=== PATIENT | female | born 1955 | race Caucasian/White ===

== ENCOUNTER → 2016-09-22 | Outpatient (CLI) | payer OTHER ==
[~2016-09-22] MED LIST: AMLO5TAB2 PO; ATOR-24 PO; BUPR75TA20 PO; ESCI1TAB10 PO; LISI-729 PO; MULT-260 PO; PRAV20TA2 PO; TRAV0.00 OPB
[2016-09-22 12:49] LABS: ALT/SGPT 40 U/L (12-78); BLOOD UREA NITROGEN 18 mg/dl (7-18); BUN/CREATININE RATIO 24.1 (10-20); CALCIUM 9.7 mg/dl (8.5-10.1); CARBON DIOXIDE 28 mmol/L (21-32); CHLORIDE 107 mmol/L (98-107); CHOLESTEROL 229 mg/dl (0-200); CREATININE 0.75 mg/dl (0.60-1.20); GLUCOSE 112 mg/dl (70-99); POTASSIUM 4.6 mmol/L (3.5-5.1); SODIUM 142 mmol/L (136-145)
[2016-09-22 12:56] LABS: BASO % 0.4 %; BASO ABS # 0.02 K/uL (0-0.2); COMPLETE YES; EOS % 0.5 %; HEMATOCRIT 42.5 % (37-47); IG% 0.2 %; LYMPH ABS # 1.39 K/uL (1.2-3.4); MEAN CELL VOLUME 97.7 fL (80-100); MEAN CORPUSCULAR HEMOGLOBIN 33.3 pg (25-34); MEAN CORPUSCULAR HGB CONC 34.1 g/dl (32-36); MEAN PLATELET VOLUME 10.2 fL (7.4-10.4); MONO % 6.8 %; NEUT % 67.1 %; PLATELET COUNT 244 K/uL (130-400); RED BLOOD COUNT 4.35 M/uL (4.2-5.4); WHITE BLOOD COUNT 5.55 K/uL (4.8-10.8)
[2016-09-22 12:59] LABS: ALB/GLOB RATIO 1.5 (0.9-2); ALKALINE PHOSPHATASE 88 U/L (45-117); AST/SGOT 25 U/L (15-37); CHOLESTEROL/HDL RATIO 2.4; HDL CHOLESTEROL 96 mg/dl; LDL CHOLESTEROL CALCULATED 124 mg/dl; TRIGLYCERIDES 47 mg/dl (0-150); URINE APPEARANCE CLEAR (CLEAR); URINE BILIRUBIN NEG (NEG); URINE COLOR YELLOW; URINE NITRITE NEG (NEG); URINE SPECIFIC GRAVITY 1.017 (1.000-1.030); UROBILINOGEN NEG (NEG); VERY LOW DENSITY LIPOPROT CALC 9 mg/dl; ZZUR CULT IF INDIC CLEAN CATCH NO
[2016-09-22 13:00] LABS: ESTIMATED AVERAGE GLUCOSE 114 mg/dl; HA1C FLAG Normal (Normal)
[2016-09-22 13:09] LABS: MANUAL MICROSCOPIC REQUIRED? NO; REVIEW REQ? YES
== END | disposition home or self-care (01) ==
LOC: C.LABBFT 08:28
PROVIDERS: ATTEND Internal Medicine
DX: E78.5 Hyperlipidemia, unspecified (principal); R73.01 Impaired fasting glucose

== ENCOUNTER → 2017-03-23 | Outpatient (CLI) | payer OTHER ==
[~2017-03-23] MED LIST changes: -MULT-260 PO; -PRAV20TA2 PO
[2017-03-23 13:30] LABS: CHOLESTEROL/HDL RATIO 2.1
== END | disposition home or self-care (01) ==
LOC: C.LABBFT 08:59
PROVIDERS: ATTEND Internal Medicine
DX: E78.5 Hyperlipidemia, unspecified (principal)

== ENCOUNTER → 2017-04-16 | Day surgery (SDC) | payer OTHER ==
[2017-03-16 10:22] VITALS: Ht 152.4 cm; Wt 43.2 kg
[~2017-04-16] VITALS: Ht 152.4 cm; Wt 43.2 kg
[~2017-04-16] MED LIST changes: +500ML BSS 0.3ML EPI 1:1000PF IRRIG ONE; +ACETAMINOPHEN 325 MG TAB PO PRN; +AMVISC PLUS 0.8ML SYRINGE INT OCU ONE; +ATROPINE SULFATE 0.1 MG/ML 5ML SYR IV PRN; +BRIMONIDINE TART 0.2% OP SOLN PER DROP CHARGE ONE; +BSS FLUSH ONE; +ENDOCOAT 0.85ML SYRINGE INT OCU ONE; +EpHEDrine SULFATE INJ 50 MG/ML AMP IV PRN; +EpINEphrine INJ 1MG/ML AMP 1 MG/ML AMP ONE; +FENTANYL CITRATE INJ 50 MCG/1 ML 2 ML VIAL ONE; +LACTATED RINGER'S 1000ML 500 ML IV SCH; +LIDOCAINE 4% OP SOLN DROP CHARGE ONE; +LIDOCAINE 4% OP SOLN DROP CHARGE OPL SCH; +LIDOCAINE HCL 1% MPF 2 ML VIAL ONE; +MIDAZOLAM HCL 1 MG/ML 2ML VIAL ONE; +MOXIFLOXACIN OPH SOLN PER DROP CHARGE ONE; +POVIDONE-IODINE OP SOLN 30 ML BTL ONE; +PROPARACAINE 0.5% OP SOLN PER DROP CHARGE OPL SCH; +TOBRAMYCIN/DEXAMETHASONE OPH OINT PER APPLN CHARGE ONE
[2017-04-16] MEDS: PHENYLEPHRINE HCL 2.5% OP SOLN PER DROP CHARGE OPL SCH ×2 (10:01→10:06)
[2017-04-16] MEDS: TROPICAMIDE 1% OP SOLN PER DROP CHARGE OPL SCH ×2 (10:02→10:07)
[2017-04-16] MEDS: CYCLOPENTOLATE HCL 1% OP SOLN PER DROP CHARGE OPL SCH ×2 (10:03→10:08)
[2017-04-16] MEDS: KETOROLAC 0.5% OP SOLN PER DROP CHARGE OPL SCH ×2 (10:04→10:09)
[2017-04-16] MEDS: MOXIFLOXACIN OPH SOLN PER DROP CHARGE OPL SCH ×2 (10:05→10:15)
--- NOTE | 2017-04-16 10:40 | History & Physical Bridge - [place] ---
H&P Re-Evaluation Bridge Note: I have examined the patient, reviewed the History & Physical and in the interval since the performance of the History & Physical I have noted the following changes of clinical significance: No changes noted
--- NOTE | 2017-04-16 11:36 | Discharge Instructions-SurgCtr ---
Discharge Instructions Date of Service Apr 16, 2017. Visit Reason for Visit: Cataract Left Eye Discharge Discharge Diagnosis / Problem: cataract left eye Discharge Goals Goal(s): Improve function Activity Recommendations Activity Limitations: per Instructions/Follow-up section Lifting Limitations: no more than 5 pounds Anesthesia . Post Anesthesia Instructions: If you have had General Anesthesia or IV Sedation: * Do not drive today. * Resume driving when surgeon permits. * Do not make important decisions or sign legal documents today. * Call surgeon for: 1. Temperature elevations greater than 101 degrees F. 2. Uncontrollable pain. 3. Excessive bleeding. 4. Persistent nausea and vomiting. 5. Medication intolerance (nausea, vomiting or rash). * For nausea and vomiting use only clear liquids such as: tea, soda, bouillon until nausea subsides, then gradually increase diet as tolerated. * If you have any concerns or questions, call your surgeon's office. If physician is unavailable and it is an emergency, call 911 or go to the nearest emergency room. . Instructions / Follow-Up Instructions / Follow-Up ACTIVITY RECOMMENDATIONS: * Light activities * You may walk outside, read, watch television. * Mild irritation and blurred vision are common for the first few days, redness around the white part of the eye is common. MEDICATIONS: Resume previous medications unless instructed otherwise by your surgeon. Eye drops (today and tomorrow): Gatifloxacin - one drop in operative eye every 2 hours while awake Prednisolone 1% - one drop in operative eye every 2 hours while awake Bromfenac - one drop in operative eye once daily Latanoprost - one drop operative eye 1 times daily SPECIAL CARE INSTRUCTIONS: * If any problems or concerns, please call Dr. Platt's office at . * Keep plastic shield taped over eye to sleep at night. * Keep plastic shield taped over eye except to administer eye drops. * Keep plastic shield on until office visit the following day. FOLLOW UP VISIT: Follow-up with Dr. Platt in the [place] office as scheduled. If not already scheduled, please call the office at . Diet Recommendations Home Diet: resume previous diet Procedures Procedures Performed: Left Eye Cataract Phacoemulsification With Intraocular Lens Implant Pending Studies Studies pending at discharge: no Medical Emergencies . Who to Call and When: Medical Emergencies: If at any time you feel your situation is an emergency, please call 911 immediately. . Non-Emergent Contact Non-Emergency issues call your: [employer] Manager . . "Provider Documentation" section prepared by Yanick Platt. .
[2017-04-16 11:37] VITALS: TEMP 37
--- NOTE | 2017-04-16 11:39 | [facility] Operative Report ---
Operative Report Operative Date Apr 16, 2017. Pre-Operative Diagnosis Left Eye Cataract Post-Operative Diagnosis Same Procedure(s) Performed Left Eye Cataract Phacoemulsification With Intraocular Lens Implant Surgeon Dr. Platt Franchise Consultant Surgeon(s) None Estimated Blood Loss none Findings cataract left eye Fluids (cc crystalloids) see anesthesia record Specimens None Drains none Anesthesia local with sedation Complication(s) None Disposition Recovery Room / PACU Implants mx60 16.0 Indications decreased vision left eye Description of Procedure After informed consent was obtained in the holding area the patient was wheeled back to the operating room where cardiac monitoring leads and oxygen by nasal cannula was administered by Anesthesia. Gentle IV sedation was given, and the patient's left eye was prepped and draped in usual sterile fashion. A wire lid speculum was placed into the left eye and the operating microscope was swung into position. Using 0.12 forceps and a Supersharp blade a paracentesis port was made 2 o'clock hours away from the 3 o'clock position of the patient's left eye. 1% non-preserved Lidocaine was then injected into the anterior chamber for anesthesia. A 2.0 mm keratotome blade was then used to make a shelved clear corneal incision at the 3 o'clock position of the left eye. Amvisc was injected into the anterior chamber and a cystotome and Utrata forceps were used to perform a curvilinear capsulorrhexis. BSS on a hydrodissection cannula was used to hydrodissect the lens nucleus away from the capsular bag. The phacoemulsification handpiece was then used in a stop and chop fashion to remove the lens nucleus. The irrigation and aspiration handpiece was then used to remove the residual cortical material. Amvisc was injected into the capsular bag and anterior chamber and a [employer]ch [employer] Lomb MX60 16.0 Diopter intraocular lens was injected into the capsular bag. Irrigation and aspiration handpiece was used to remove the residual viscoelastic material. The wounds were hydrated and noted to be watertight. The wire lid speculum was removed from the eye. Vigamox, Brimonidine, and TobraDex ointment were placed on the eye and it was shielded. It should be noted that EndoCoat was used extensively during the case to protect the cornea endothelium. DISPOSITION: The patient tolerated the procedure well and was wheeled to the post anesthesia care unit in stable condition. I attest to the content of the Intraoperative Record and any orders documented therein. Any exceptions are noted below. I attest to the content of the Intraoperative Record and any orders documented therein. Any exceptions are noted below.
[2017-04-16 11:57] VITALS: BP 93/58; PULSE 68; O2SAT 96
--- NOTE | 2017-04-16 12:02 | Anesthesia Progress Nt - [facility] ---
Anesthesia Post Op Note Date & Time Apr 16, 2017 at 12:02 Vital Signs Pain Intensity: 0 Vital Signs Past 12 Hours Date Time Temp Pulse Resp B/P (MAP) Pulse Ox O2 Delivery O2 Flow Rate FiO2 04/16/17 11:57 68 16 93/58 (70) 96 Room Air 04/16/17 11:37 37 68 16 105/67 (80) 97 Room Air 04/16/17 09:54 36.8 83 18 123/78 (93) 98 Room Air Notes Mental Status: alert / awake / arousable, participated in evaluation Pt Amnestic to Procedure: Yes Nausea / Vomiting: adequately controlled Pain: adequately controlled Airway Patency, RR, SpO2: stable & adequate BP & HR: stable & adequate Hydration State: stable & adequate Anesthetic Complications: no major complications apparent
== END | disposition home or self-care (01) ==
LOC: X.SURG 09:43
PROVIDERS: ATTEND Ophthalmology
DX: H26.9 Unspecified cataract (principal); I10 Essential (primary) hypertension; F41.9 Anxiety disorder, unspecified; F32.9 Major depressive disorder, single episode, unspecified; Z90.89 Acquired absence of other organs; F17.200 Nicotine dependence, unspecified, uncomplicated; Z98.41 Cataract extraction status, right eye

== ENCOUNTER → 2017-10-03 | Outpatient (CLI) | payer OTHER ==
[~2017-10-03] MED LIST changes: -500ML BSS 0.3ML EPI 1:1000PF IRRIG ONE; -ACETAMINOPHEN 325 MG TAB PO PRN; -AMVISC PLUS 0.8ML SYRINGE INT OCU ONE; -ATROPINE SULFATE 0.1 MG/ML 5ML SYR IV PRN; -BRIMONIDINE TART 0.2% OP SOLN PER DROP CHARGE ONE; -BSS FLUSH ONE; -ENDOCOAT 0.85ML SYRINGE INT OCU ONE; -EpHEDrine SULFATE INJ 50 MG/ML AMP IV PRN; -EpINEphrine INJ 1MG/ML AMP 1 MG/ML AMP ONE; -FENTANYL CITRATE INJ 50 MCG/1 ML 2 ML VIAL ONE; -LACTATED RINGER'S 1000ML 500 ML IV SCH; -LIDOCAINE 4% OP SOLN DROP CHARGE ONE; -LIDOCAINE 4% OP SOLN DROP CHARGE OPL SCH; -LIDOCAINE HCL 1% MPF 2 ML VIAL ONE; -MIDAZOLAM HCL 1 MG/ML 2ML VIAL ONE; -MOXIFLOXACIN OPH SOLN PER DROP CHARGE ONE; -POVIDONE-IODINE OP SOLN 30 ML BTL ONE; -PROPARACAINE 0.5% OP SOLN PER DROP CHARGE OPL SCH; -TOBRAMYCIN/DEXAMETHASONE OPH OINT PER APPLN CHARGE ONE
[2017-10-03 12:31] LABS: BASO % 0.5 %; BASO ABS # 0.03 K/uL (0-0.2); EOS ABS # 0.06 K/uL (0-0.5); HEMOGLOBIN 14.2 g/dL (12.0-16.0); IG# 0.01 K/uL (0.00-0.02); LYMPH % 23.2 %; LYMPH ABS # 1.46 K/uL (1.2-3.4); MEAN CORPUSCULAR HEMOGLOBIN 32.8 pg (25-34); MEAN CORPUSCULAR HGB CONC 33.8 g/dl (32-36); MEAN PLATELET VOLUME 9.6 fL (7.4-10.4); MONO % 6.3 %; NEUT % 68.8 %; NEUT ABS # 4.34 K/uL (1.4-6.5); PLATELET COUNT 269 K/uL (130-400); RED CELL DISTRIBUTION WIDTH CV 13.9 % (11.5-14.5); RED CELL DISTRIBUTION WIDTH SD 49.5 fL (36.4-46.3)
[2017-10-03 13:15] LABS: ALBUMIN 3.9 gm/dl (3.4-5.0); ALT/SGPT 44 U/L (12-78); AST/SGOT 32 U/L (15-37); BLOOD UREA NITROGEN 18 mg/dl (7-18); CALCIUM 9.2 mg/dl (8.5-10.1); CARBON DIOXIDE 29 mmol/L (21-32); CHOLESTEROL 185 mg/dl (0-200); CREATININE 0.79 mg/dl (0.60-1.20); GLUCOSE 112 mg/dl (70-99); POTASSIUM 4.1 mmol/L (3.5-5.1); SODIUM 140 mmol/L (136-145)
[2017-10-03 13:17] LABS: ALKALINE PHOSPHATASE 106 U/L (45-117); LDL CHOLESTEROL CALCULATED 88 mg/dl; TOTAL PROTEIN 7.5 gm/dl (6.4-8.2)
[2017-10-03 13:24] LABS: HEMOGLOBIN A1C 5.8 % (4.5-5.6)
== END | disposition home or self-care (01) ==
LOC: C.LABBFT 07:34
PROVIDERS: ATTEND Internal Medicine
DX: R73.01 Impaired fasting glucose (principal); E78.5 Hyperlipidemia, unspecified

== ENCOUNTER 2019-07-21 18:32 | Inpatient (IN) ==
[~2019-07-21 18:32] MED LIST changes: -AMLO5TAB2 PO; -ATOR-24 PO; -BUPR75TA20 PO; -ESCI1TAB10 PO; +GLYCOPYRROLATE 0.2 MG/ML VIAL IV ONE; +KETAMINE HCL INJ 50 MG/ML 10 ML VIAL IV ONE; +LIDOCAINE 2% 20 MG/ML 5 ML SYR IV ONE; -LISI-729 PO; +MIDAZOLAM HCL 5 MG/ML 1 ML VIAL IV ONE; +MIDAZOLAM HCL 5 MG/ML VIAL IV ONE; -TRAV0.00 OPB; +VECURONIUM BROMIDE 10 MG VIAL IV ONE; +fentaNYL citrate 100 MCG/2 ML VIAL IV ONE
[2019-07-21] MEDS ORDERED: FAMOTIDINE 20MG IV PUSH 20 MG/5 ML SYR IV STA (18:53)
[2019-07-21] MEDS ORDERED: DEXAMETHASONE **PF** INJ 10 MG/ML VIAL IV STA (18:53)
[2019-07-21] MEDS ORDERED: DiphenhydrAMINE HCL 50 MG/ML VIAL IV STA (18:53)
[2019-07-21] MEDS ORDERED: GLYCOPYRROLATE 0.2 MG/ML VIAL IV ONE ×2 (19:19→20:45)
[2019-07-21] MEDS ORDERED: TRANEXAMIC ACID / 0.7% NACL 1,000 MG/100 ML BAG IV STA (20:27)
[2019-07-21] MEDS ORDERED: SODIUM CHLORIDE 0.9% 250 ML IV PRN (20:29)
[2019-07-21] MEDS ORDERED: ICU PROTOCOL FOR HYPERGLYCEMIA PRN ×2 (20:32→20:58)
--- NOTE | 2019-07-21 20:43 | Emergency Department Note ---
Entered by Pili Way acting as a scribe for History of Present Illness General Chief complaint: Allergic Reaction Stated complaint: SWELLING TONGUE, TROUBLE SWALLOWING, BREATHING Time Seen by Provider: 07/21/19 18:47 Source: patient History of Present Illness Provider complaint: allergic reaction Onset (ago): week(s) 1 Location: mouth Severity: similar to prior episodes Pain Consistency: + intermittent Quality: + other (allergic reaction) Associated symptoms: + other (Positive difficulty swallowing;); no shortness of breath Treatments prior to arrival: other (Ibuprofen) The patient, who is a 64 year old female with a medical history of hypertension, hypercholesteremia, and depression, presents to the Emergency Room with complaints of allergic reaction episodes that started a week ago. The patient states that these allergic reactions cause her tongue to swell. The patient reports that her most recent episode started at 1730 today. The patient states that the swelling started on the left side of her tongue and eventually spread to her entire tongue. The patient expresses that she is unable to swallow but is able to breath without difficulty. The patient relays that she took Ibuprofen prior to arrival. The patient reports this episode happening a week ago while she was in [place]. The patient states that she perceived it to be external mumps. The patient states that another episode happened while she was driving back from [place] which increased her concern. The patient expresses that this has never happened to her before and she can not recall taking anything that might cause this allergic reaction. The patient admits to multiple medications including Lisinopril. Home Medications Home Medications Medication Instructions Recorded Confirmed Type amlodipine 5 mg PO QAM 11/05/18 01/27/19 History divalproex [Depakote] 500 mg PO QAM 11/05/18 01/27/19 History latanoprost 1 drp OPB HS 11/05/18 01/27/19 History lisinopril 5 mg PO QAM 11/05/18 01/27/19 History pravastatin 20 mg PO HS 11/05/18 01/27/19 History fluocinonide 0.05 % topical cream 1 applic TOP QID PRN #60 gm 01/27/19 03/14/19 Rx fluticasone propionate 50 1 sprays INTNAS DAILY 03/14/19 03/14/19 History mcg/actuation nasal spray,suspension tamoxifen 20 mg tablet 20 mg PO DAILY 03/14/19 03/14/19 History Allergies Allergy/AdvReac Type Severity Reaction Status Date / Time pseudoephedrine AdvReac Mild Palpitation Verified 01/27/19 08:18 s sertraline [From Zoloft] AdvReac Mild "SKIN Verified 01/27/19 08:18 CRAWLING" simvastatin AdvReac Mild MYALGIA Verified 01/27/19 08:18 Past Med/Surg History Medical History Agoraphobia with panic disorder Anxiety ASCVD (arteriosclerotic cardiovascular disease) Bipolar disorder Chronic obstructive pulmonary disease "MILD" Depression Glaucoma Hyperlipidemia Hypertension Osteopenia (Acute) Post traumatic stress disorder Restless leg syndrome Tobacco abuse Surgical History History of adenoidectomy History of breast biopsy BREAST CANCER October History of cataract surgery RT/LEFT EYE History of lumpectomy of left breast (Acute) History of tonsillectomy History of tooth extraction S/P fine needle aspiration (Acute) Family History Grandmother (Paternal) , age 75 of metatasis of cancer No problems noted. Grandfather (Paternal) , of black lung in his sixties No problems noted. Mother , unknown history No problems noted. Father , of metastasis to brain from kidney cancer age 72 No problems noted. Sister Age: 64 Breast cancer Social History Preferred Language: Serbian Communication Ability: Effective Wound Care Nurse Required: No Beliefs That Will Affect Care: None Current Living Situation: Spouse Feels Safe at Home: Yes Smoking Status: Current every day smoker Tobacco Type: cigarettes ; Cigarettes Per Day: 20 CIG DAILY ; Second Hand Exposure: Yes ; Hx Alcohol Use: Yes Alcohol type: hard liquor Hx Substance Use: No Review of Systems See HPI for pertinent positives & negatives. and A total of 10 systems reviewed and were otherwise negative Physical Exam Vital Signs Vital Signs - 24 hr 07/21/19 18:34 07/21/19 20:14 Temperature 36.5 C Temperature Source Oral Pulse Rate 97 H Respiratory Rate 18 Respiratory Effort / Characteristics Non-Labored Spontaneous Blood Pressure 153/97 H Blood Pressure Mean 115 Blood Pressure Position Sitting Pulse Oximetry 98 98 Oxygen Delivery Method Room Air Room Air Sepsis Recent Fever Within 48 Hours No Sepsis New/Unexplained Change in Mental Status No Sepsis Action Taken by Nursing No Action Required CONSTITUTIONAL/VITAL SIGNS: Reviewed / noted above. GENERAL: Non-toxic in appearance. INTEGUMENTARY: Warm, dry, and [place]. HEAD: Normocephalic. EYES: without scleral icterus or trauma. ENT/OROPHARYNX: Moist. Moderate left lateral tongue edema. LYMPHADENOPATHY/NECK: Is supple without lymphadenopathy or meningismus. RESPIRATORY: Lungs clear and equal. CARDIOVASCULAR: Regular rate and rhythm. GI/ABDOMEN: Soft and nontender. No organomegaly or pulsatile mass. No rebound or guarding. Normal bowel sounds. EXTREMITIES: Warm and well perfused. BACK: No CVA tenderness. NEUROLOGICAL: Intact without focal deficits. PSYCHIATRIC: normal affect. MUSCULOSKELETAL: Normally developed with good muscle tone. Course Course 1848: Past medical records reviewed. The patient was evaluated in room B6. A complete history and physical exam was performed. 2017: I reviewed the patient's case with Dr. Lopez, [facility] Emergency Medicine. He will evaluate the patient for further management and might intubate her. 2034: [facility] will evaluate the patient for further management. Consultations Consultation #1: I reviewed the patient's case with Dr. Ruvalcaba, [facility] Emergency Medicine. He will evaluate the patient for further management and will be intubating her. Time: 20:17 Consultation #2: I [facility] He will evaluate the patient for further management. Time: 20:35 Administered Medications Discontinued Medications Dexamethasone Sodium Phosphate (Decadron Pf) 10 mg IV NOW STA Stop: 07/21/19 18:54 Last Admin: 07/21/19 19:21 Dose: 10 mg Documented by: [id number] Diphenhydramine HCl (Benadryl) 25 mg IV NOW STA Stop: 07/21/19 18:54 Last Admin: 07/21/19 19:20 Dose: 25 mg Documented by: [id number] Famotidine (Pepcid 20mg Iv Push) 20 mg in 5 mls @ 2.5 mls/min IV NOW STA Stop: 07/21/19 18:54 Last Admin: 07/21/19 19:21 Dose: 2.5 mls/min Documented by: [id number] Critical Care Time Critical Care Time: Yes Total Critical Care Time: 34 I have personally spent 34 minutes of critical care time in the direct management of this patient. This includes bedside care, interpretation of diagnostic studies, and testing, discussion with consultants, patient, and family members, and other required patient management activities. This 30 minutes is in excess of all separately billable procedures. Medical Decision Making Differential Diagnosis Differential diagnosis includes allergic reaction, anaphylaxis, urticaria, Vaca-Stephan syndrome, toxic epidermal necrolysis, erythema multiforme, cellulitis, angioedema related to lisinopril, as well as others were entertained. Medical Records Attestation: I reviewed the patient's medical records. Home Medications Current Medication List: was personally reviewed by me Blood Pressure Blood Pressure Findings: Elevated blood pressure Blood Pressure Disposition: further management by hospitalist MDM Narrative This is a 64-year-old female who presents to the ED with a chief complaint of swelling of her tongue. The patient states that her symptoms started at 5:30 PM about an hour prior to arrival. It started suddenly with swelling mostly to the left side of the tongue. The patient states that she is having difficulty swallowing her secretions. The patient's vital signs revealed hypertension. Her physical exam does reveal edema to the left side of the tongue. It is moderate in nature. The patient has no additional hives. She is on lisinopril. This is the likely cause of her symptoms. There is no airway stridor. She is breathing adequately. There is no wheezing. Her vital signs are stable. The patient was treated with IV Decadron, IV Benadryl as well as IV Pepcid. She was monitored and on reevaluation, her swelling seems to have worsened more on the right. She was given IV TXA, per up-to-date as well as 2 units of IV FFP. I spoke with the hospitalist as well as the fibreglass lay up worker, Dr. Lopez. He is going to see the patient in the ED for possible awake intubation. Impression & Plan Angioedema Discharge Plan Visit Data Chief Complaint: Allergic Reaction Stated Complaint: SWELLING TONGUE, TROUBLE SWALLOWING, BREATHING ED Provider: Declan Smith Discharge Problem: Angioedema Patient Disposition: Being Evaluated by Hospitalist Forms Stand Alone Forms: My [facility] Prescriptions Prescriptions: No Action tamoxifen 20 mg tablet 20 mg PO DAILY RF: 0 fluticasone propionate [Flonase Allergy Relief] 50 mcg/actuation spray,suspension 1 sprays INTNAS DAILY RF: 0 fluocinonide 0.05 % cream 1 applic TOP QID PRN (Reason: itching) Qty: 60 RF: 1 latanoprost 0.005 % Drops 1 drp OPB HS RF: 0 amlodipine 5 mg Tablet 5 mg PO QAM RF: 0 divalproex [Depakote] 500 mg Tablet,Delayed Release (Dr/Ec) 500 mg PO QAM RF: 0 pravastatin 20 mg Tablet 20 mg PO HS RF: 0 lisinopril 5 mg Tablet 5 mg PO QAM RF: 0 Referrals Referrals: Jarad Peña MD [Primary Care Provider] - Discharge Problem: Angioedema Qualifiers: Encounter type: initial encounter Qualified Code(s): T78.3XXA - Angioneurotic edema, initial encounter The scribe's documentation has been prepared under my direction and personally reviewed by me in its entirety. I confirm that the note above accurately reflects all work, treatment, procedures, and medical decision making performed by me.
[2019-07-21] MEDS ORDERED: [UNRECOGNIZED DRUG - OTHER] IV ONE (20:45)
[2019-07-21] MEDS ORDERED: DEXMEDETOMIDINE HCL 200 MCG in SODIUM CHLORIDE 0.9% 48 ML IV SCH ×2 (20:45→21:00)
[2019-07-21] MEDS ORDERED: KETAMINE HCL INJ 50 MG/ML 10 ML VIAL ONE (20:46)
[2019-07-21] MEDS ORDERED: fentaNYL citrate 100 MCG/2 ML VIAL ONE (20:46)
[2019-07-21] MEDS ORDERED: RAPID SEQUENCE INDUCTION BAG ONE (20:49)
[2019-07-21] MEDS ORDERED: OXYMETAZOLINE 0.05% 30 ML BTL ONE (20:54)
[2019-07-21] MEDS ORDERED: DexMEDEtomidine BOLUS FROM BAG IV ONE (21:00)
[2019-07-21] MEDS ORDERED: LIDOCAINE 2% 20 MG/ML 5 ML SYR IV ONE (21:11)
[2019-07-21] MEDS ORDERED: PROPOFOL IV EMULSION 10 MG/ML 100 ML VIAL IV ONE (21:25)
[2019-07-21] MEDS ORDERED: propofoL 1,000 MG/100 ML VIAL IV SCH (21:26)
--- NOTE | 2019-07-21 21:51 | Critical Care Consultation ---
Date of Consultation July 21, 2019 Assessment & Plan (1) Admitted to intensive care unit: Reason Critically Ill: 64-year-old female with significant angioedema with airway compromise requiring emergent endotracheal intubation for airway protection. NEURO - * CAM ICU: NEGATIVE * Sedation: Midazolam drip * Pain: Fentanyl PRN CARDIAC/VASCULAR - * Hypertension, hyperlipidemia: * Hold on lisinopril secondary to angioedema. * Continue other medications when patient able to tolerate p.o. * Monitor on telemetry. RESPIRATORY - * Airway compromise secondary to significant angioedema requiring emergent endotracheal intubation: * Significant upper airway edema. * Difficult airway secondary to inability to visualize upper airway structures secondary to significant tongue edema and facial edema. * Requiring nasal intubation. * Awake intubation performed at bedside. * Plan to keep sedated until airway status improves. * Will continue w/ antihistamines, steroids, etc. * Patient likely with COPD. Will monitor throughout stay. GI/NUTRITION - * N.p.o. at this point. * Prophylaxis: RENAL/LYTES - * No significant electrolyte derangements. * IVF: Normosol@100mL/hr - * Uribe in place - Strict I&Os. ENDO - * No h/o DM or Thyroid Dz * BSGs per unit protocol. ISS --> gtt per unit policy. HEME - * Stable H&H ID - * No concern for infectious contribution at this time. LINES/IV ACCESS - * PIVs x2 * Uribe * Nasotracheal tube DVT PROPHYLAXIS - * Lovenox SQ * SCDs I have personally spent 35 minutes of critical care time in the direct management of this patient. This is a life/limb threatening event. This includes time spent evaluating patient, direct bedside care, chart review, placing orde rs, interpretation of diagnostic studies, discussion with consultants, patient, and family members, as well as other required patient management activities. This time is exclusive of all separately billable procedures, and teaching time and separate from and in addition to any other critical care service time. Thank you for allowing us to participate in the care of this patient. Please refer to my attending physician's documentation for any further recommendations. (2) Angioedema: (3) Difficult airway for intubation: (4) At high risk for airway occlusion: (5) Hypertension: (6) Hypercholesteremia: (7) Depression: (8) Alcohol abuse: (9) Malignant neoplasm of upper-outer quadrant of left breast in female, estrogen receptor positive: Supervising Physician Co-Signing Physician Notes This billing is screening representative of my initial evaluation of the patient. In the ED immediately recognized a impending airway obstruction and associated respiratory failure. She and her both verbally consented to bronchoscopy and intubation. She was brought immediately to the ICU and prepped and successfully intubated with fiberoptic bronchoscope. We will keep the patient sedated more heavily since she has a difficult airway. History of Present Illness Attending Physician: Homero Mckeon PA-C History of Present Illness Patient is a 64-year-old female with a significant past medical history of hypertension, hyperlipidemia, depression, and currently being treated for breast cancer. She presented to the emergency department today with acute onset of swelling of the face and tongue. Apparently, this had occurred to the RIGHT sided submental area approximately 1 week ago but resolved without issue. Today, her symptoms have not remitted and they have actually significantly worsened even during her stay in the emergency department. She received appropriate medications in the emergency department without relief of symptoms. She actually developed worsening angioedema while in the emergency department. Upon evaluation in the emergency department, the patient is awake, alert, and oriented. She has significant angioedema and significant tongue swelling. She is unable to tolerate her oral secretions. She has a muffled voice. Discussion was had with the patient and her at bedside and verbal consent was obtained for proceeding with emergent endotracheal intubation for airway protection. The patient was emergently transferred to the ICU for continued management. Allergies Allergy/AdvReac Type Severity Reaction Status Date / Time lisinopril Allergy Severe Angioedema Verified 07/21/19 21:44 pseudoephedrine AdvReac Mild Palpitation Verified 07/21/19 21:00 s sertraline [From Zoloft] AdvReac Mild "SKIN Verified 07/21/19 21:00 CRAWLING" simvastatin AdvReac Mild MYALGIA Verified 07/21/19 21:00 Home Medications Home Medications Medication Instructions Recorded Confirmed Type amlodipine 5 mg PO QAM 11/05/18 07/21/19 History divalproex [Depakote] 500 mg PO QAM 11/05/18 07/21/19 History latanoprost 1 drp OPB HS 11/05/18 07/21/19 History lisinopril 5 mg PO QAM 11/05/18 07/21/19 History pravastatin 20 mg PO HS 11/05/18 07/21/19 History fluocinonide 0.05 % topical cream 1 applic TOP QID PRN #60 gm 01/27/19 07/21/19 Rx tamoxifen 20 mg tablet 20 mg PO DAILY 03/14/19 07/21/19 History montelukast 10 mg PO DAILY 07/21/19 07/21/19 History Patient History Medical History Agoraphobia with panic disorder Anxiety ASCVD (arteriosclerotic cardiovascular disease) Bipolar disorder Chronic obstructive pulmonary disease "MILD" Depression Glaucoma Hyperlipidemia Hypertension Osteopenia (Acute) Post traumatic stress disorder Restless leg syndrome Tobacco abuse Surgical History History of adenoidectomy History of breast biopsy BREAST CANCER October History of cataract surgery RT/LEFT EYE History of lumpectomy of left breast (Acute) History of tonsillectomy History of tooth extraction S/P fine needle aspiration (Acute) Family History Grandmother (Paternal) , age 75 of metatasis of cancer No problems noted. Grandfather (Paternal) , of black lung in his sixties No problems noted. Mother , unknown history No problems noted. Father , of metastasis to brain from kidney cancer age 72 No problems noted. Sister Age: 64 Breast cancer Social History Preferred Language: Yoruba Communication Ability: Effective Communication Ability Comment: intubated Cable Maker Required: No Beliefs That Will Affect Care: None Current Living Situation: Spouse Other Information That Helps Us Care for You: No Feels Safe at Home: Yes Safety Concerns: Feels Safe At This Time Smoking Status: Current every day smoker Tobacco Type: cigarettes ; Cigarettes Per Day: 20 CIG DAILY ; Second Hand Exposure: Yes ; Hx Alcohol Use: No Hx Substance Use: No Review of Systems Review of Systems: A complete 10 point review of systems was reviewed with the patient with pertinent positives and negatives as per history of present illness. All else were negative. Physical Exam Physical Exam: VITAL SIGNS - Vital signs and nursing notes were reviewed. GENERAL - 64-year-old female appearing her stated age. Moderate submental/tongue edema. Muffled voice. SKIN - No rashes/lesions appreciated. HEAD - As above. Normocephalic, Atraumatic. EYES - PERRL with EOMI bilaterally. Without periorbital edema. Without subconjunctival hemorrhage. Palpebral conjunctiva pink and moist with no injection. EARS - No deformities of external structures noted on gross examination bilaterally. NOSE - Midline and without cyanosis. No epistaxis or clear watery discharge noted. Septum midline without deviation. No septal hematoma noted. No overlying ecchymosis noted. MOUTH/OROPHARYNX - Without perioral cyanosis. Significant angioedema appreciated. Tongue grossly edematous. Unable to appreciated the posterior pallet secondary to angioedema. NECK - Submental edema. Supple to palpation. No JVD noted. LUNGS - Chest wall symmetric without accessory muscle use, intercostals retractions, or central cyanosis. Without stridor. No active wheezes. Noormal vesicular breath sounds CTA B/L. No rales or rhonchi appreciated. CARDIAC - RRR with S1/S2. No murmur, rubs, or gallops appreciated. ABDOMEN - Abdominal contour flat without pulsations or visible masses. BS normoactive all four quadrants. No rebound tenderness or guarding noted. No tenderness, palpable masses, hepatosplenomegaly, or ascites noted. EXTREMITIES - No gross deformities noted of the extremities. +3/5 radial and dorsalis pedis pulses palpated throughout. +5/5 strength noted in UE/LE bilaterally. NEUROLOGIC - Cranial nerves II through XII grossly intact. Sensory intact to light touch throughout. PSYCH - A&Ox3 and cooperates fully with examiner. Pt is very pleasant and interacts well with examiner. Results & Data Vital Signs (Past 12 Hours) Vital Signs Temp Pulse Resp BP Pulse Ox 07/21/19 21:11 83 18 128/77 97 07/21/19 20:14 98 07/21/19 18:34 36.5 C 97 H 18 153/97 H 98 Coding Level of Care Code Critical Care 1st 30-74 mins Diagnoses Admitted to intensive care unit Z78.9 Angioedema T78.3XXA Encounter type: initial encounter Difficult airway for intubation T88.4XXA At high risk for airway occlusion Z91.89 Hypertension I10 Hypercholesteremia E78.00 Depression F32.9 Alcohol abuse F10.10 Malignant neoplasm of upper-outer quadrant of left breast in female, estrogen receptor positive C50.412; Z17.0 Time Spent (min) 30 Comment I have personally spent 30 minutes of critical care time in the direct management of this patient. This is a life/limb threatening event. This includes time spent evaluating patient, direct bedside care, chart review, placing orders, interpretation of diagnostic studies, discussion with consultants, patient, and/or family members regarding treatment decisions, as well as other required patient management activities. This time is exclusive of all separately billable procedures, and teaching time and separate from and in addition to any other critical care service time. This time is my independent evaluation and management, care was subsequently turned over to Clayton Mckeon. (1) Angioedema Encounter type: initial encounter Qualified Code(s): T78.3XXA - Angioneurotic edema, initial encounter
--- NOTE | 2019-07-21 21:55 | Procedure Note ---
Procedure Note Date of Service July 21, 2019 Procedure Date: Noted above Procedure: Fiberoptic awake nasotracheal intubation Pre-procedure Diagnosis: Acute airway obstruction, angioedema Post-procedure Diagnosis: same as above Prior to Procedure: Informed Consent: Patient was verbally consented along with her . Attending Staff: Oleg Lopez DO The identity of the patient was confirmed and a bedside time out was performed. Description of Procedure: Patient was evaluated and required intubation for impending respiratory failure. Patient was unable to swallow secretions, barely able to close mouth due to tongue size this had progressed over her course in the ED. She was immediately brought to the ICU for nasotracheal intubation. The patient's left nares was serially dilated from 26 nasal trumpet to 32 nasal trumpet. The patient received the following medications: Glycopyrrolate 0.2 mg 2102 Precedex 45 mcg bolus over 10 minutes initiated at 2105 Fentanyl 50 mcg IV 2107 2 mg Versed IV 2108 Ketamine 50 mg IV 2117 Glycopyrrolate 0.1 mg at 2118 Ketamine 50 mg 2122 After successful intubation at 2122 patient received: Vecuronium 10 mg IV at 2123 Precedex infusion was stopped and transition to propofol infusion at 2127. With the nasal trumpet in place to initially evaluated the airway and it was noted to be profoundly edematous. Patient was able to moderately follow verbal commands. With the fiberoptic bronchoscope a 7.0 inner diameter nasal tracheal tube was placed over the bronchoscope, the nasal trumpet was removed and care was taken to insert the bronchoscope into the left naris. I was able to pass the tube successfully, we were able to enter the airway through the vocal cords. Once I confirmed I was in the airway the nasotracheal tube was advanced into the airway. Ultimately the tube was secured at 27 cm and position confirmed via bronchoscopy. Complications: Desaturation to 85%, immediately returned to 100% with [id number] ventilation Findings: Significant glottic and hypopharyngeal edema Specimens: Not applicable Estimated blood loss: Zero Coding CPT Codes Resuscitation - Resuscitation: [id number] Endotracheal Intubation, emergency ([id number])
[2019-07-21] MEDS: NORMOSOL-R 1,000 ML IV SCH (22:30)
[2019-07-21] MEDS: MIDAZOLAM HCL 125 MG/250 ML BAG IV SCH (23:01)
[2019-07-21] MEDS: DiphenhydrAMINE HCL 50 MG/ML VIAL IV SCH (23:45)
[2019-07-21] MEDS: methylPREDNISolone 40 MG in SYRINGE 0 ML IV SCH (23:46)
[2019-07-22] MEDS ORDERED: ICU PROTOCOL FOR HYPERGLYCEMIA PRN (00:45)
[2019-07-22] MEDS: fentaNYL citrate 100 MCG/2 ML VIAL IV PRN ×5 (01:48→21:49)
[2019-07-22] MEDS: DiphenhydrAMINE HCL 50 MG/ML VIAL IV SCH ×2 (04:14→07:54)
[2019-07-22 04:53] LABS: Hematocrit (blood only) 32.4 % (37-47); Hemoglobin 10.6 g/dL (12.0-16.0); Immature Granulocytes # (auto) 0.01 K/uL (0.00-0.02); Immature Granulocytes % (auto) 0.2 %; Lymphocytes # (auto) 0.37 K/uL (1.2-3.4); Lymphocytes % (auto) 8.6 %; Mean Corpuscular Hemoglobin 31.6 pg (25-34); Mean Corpuscular Hgb Conc 32.7 g/dL (32-36); Mean Corpuscular Volume 96.7 fL (80-100); Mean Platelet Volume 9.4 fL (7.4-10.4); Monocytes # (auto) 0.03 K/uL (0.11-0.59); Monocytes % (auto) 0.7 %; Neutrophils # (auto) 3.87 K/uL (1.4-6.5); Neutrophils % (auto) 90.5 %; Platelet Count 223 K/uL (130-400); RDW Standard Deviation 45.7 fL (36.4-46.3); Red Blood Count 3.35 M/uL (4.2-5.4); White Blood Count 4.28 K/uL (4.8-10.8)
--- NOTE | 2019-07-22 05:05 | History and Physical Report ---
DATE OF ADMISSION: 07/22/2019 CHIEF COMPLAINT: Angioedema. HISTORY OF PRESENT ILLNESS: This is a 64-year-old female with past medical history significant for hypertension, hyperlipidemia, osteoporosis, primary open angle glaucoma, major depression, anxiety, PTSD, bipolar disorder, tobacco abuse, malignant neoplasm of the left side of the breast status post left breast lumpectomy, presents with angioedema of the tongue, status post intubation. Currently the patient is heavily sedated and intubated. Could not get any history from the patient. No family in the room. As per the ER notes and critical care notes, the patient about a week ago had allergic reactions which were causing her tongue to swell. She says she is unable to swallow, but has no trouble breathing. This happened one week ago in [place] and thought this was mumps, again today it happened around 5:30 p.m. and she came to the ER where her vitals were okay.She is on lisinopril possible cause of the symptoms. There was no stridor. She received IV Decadron, IV Benadryl, IV Pepcid, and it was not improving, it was getting a little worse. She was status post IV TXA as well as 2 units of IV FFP and critical care was consulted and because of impending respiratory obstruction, the patient is status post intubation through nasal intubation, and sedated. Hemodynamics are stable. ALLERGIES: ZOLOFT, PSEUDOEPHEDRINE, SIMVASTATIN. PAST MEDICAL HISTORY: As mentioned above. PAST SURGICAL HISTORY: Breast lesion excision on the left side, cataract surgery, puncture of the breast cyst. MEDICATIONS: The patient is on Singulair 10 mg p.o. daily, tamoxifen 20 mg daily, amlodipine 5 mg p.o. daily, lisinopril 5 mg p.o. daily, pravastatin 20 mg p.o. daily, ibuprofen 200 mg every 6 hours p.r.n., Depakote ER 500 mg p.o. at bedtime, latanoprost as directed. FAMILY HISTORY: Significant for paternal grandmother had breast cancer, sister has breast cancer in her 40s, sister has autoimmune cirrhosis, father has stroke. SOCIAL HISTORY: , smokes 1 pack a day for last 25 years. 11.7 standard drinks of alcohol per week as per records. REVIEW OF SYSTEMS: Unobtainable at this time. PHYSICAL EXAMINATION: GENERAL: The patient is status post intubation and sedation. VITAL SIGNS: Temperature 36, pulse 65, respiratory rate 16, blood pressure 111/66, oxygen 97% on room air. HEENT: No pallor, no icterus. Pupils very sluggish to react. NECK: No JVD, no neck masses. Throat is swollen. CARDIOVASCULAR: S1, S2 heard, regular rate and rhythm, no murmur, no gallop. RESPIRATORY SYSTEM: Normal AP diameter. No accessory muscle use. No wheezing, no crackles. ABDOMEN: Soft, bowel sounds present. No distention. CENTRAL NERVOUS SYSTEM: Status post sedation and intubation. EXTREMITIES: No edema, no erythema. LABORATORY DATA: Currently not obtainable. ASSESSMENT AND PLAN: This is a 64-year-old female who presents with angioedema of the tongue, status post emergent intubation through nasal approach. 1. Angioedema of the tongue, status post intubation, heavily on sedation for airway obstruction. Received Decadron, Pepcid, Benadryl, FFP, and TXA in the ER. Currently on IV fluids, IV Solu-Medrol 40 q. 8 hours, Pepcid 20 b.i.d. Closely monitor in the ICU. Vent management as per critical care. 2. Hypertension. The patient is on lisinopril, possible cause of her angioedema, which we will currently hold and monitor the blood pressure. 3. History of left breast cancer status post lumpectomy, on tamoxifen. 4. Major depression, bipolar, PTSD, on Depakote ER p.o. which is on hold for now. 5. Hyperlipidemia, on pravastatin, which is on hold. 6. Allergies, on Singulair which is on hold. 7. Primary open angle glaucoma on latanoprost as needed. 6. Deep venous thrombosis prophylaxis, on Lovenox. DISPOSITION: Closely monitor in the ICU. Level 1 full code. MTDD
[2019-07-22 05:17] LABS: BUN Creatinine Ratio 27.4 (10-20); Calcium 7.7 mg/dl (8.5-10.1); Creatinine Clr Calc Pharmacy 58.8 ml/min; Est GFR (African American) 108.9; Magnesium 1.8 mg/dl (1.8-2.4); Potassium 4.7 mmol/L (3.5-5.1)
[2019-07-22] MEDS: methylPREDNISolone 40 MG in SYRINGE 0 ML IV SCH ×3 (07:05→22:14)
--- NOTE | 2019-07-22 07:06 | XRay Report ---
XR chest 1V portable CLINICAL HISTORY: Respiratory failure COMPARISON STUDY: No previous studies for comparison. FINDINGS: The heart is normal in size. The patient is mildly hyperinflated. There is no focal pulmona ry consolidation. There is no failure. There are no pleural effusions. There are minimal basilar atel ectatic changes. There is an endotracheal tube 22 mm above the sindy.[There is evidence for right sh oulder calcific tendinitis. IMPRESSION: 1. Endotracheal tube 22 mm above the sindy 2. No evidence of focal pulmonary consolidation 3. No evidence of failure ACT 112: Negative or not required by law. Electronically signed by: Gilbert Baez M.D. 07/22/2019 7:05 AM
[2019-07-22] MEDS ORDERED: PNEUMOCOCCAL Polysaccharide Vaccine 25mcg/0.5mL vial/Syr IM ONE (08:00)
[2019-07-22] MEDS: FAMOTIDINE 20 MG in SYRINGE 3 ML IV SCH ×2 (08:22→20:45)
[2019-07-22] MEDS: ENOXAPARIN INJ 30 MG/0.3 ML SYR SQ SCH (08:22)
[2019-07-22] MEDS: NORMOSOL-R 1,000 ML IV SCH ×2 (08:22→18:41)
[2019-07-22] MEDS: MIDAZOLAM HCL 125 MG/250 ML BAG IV SCH (14:11)
--- NOTE | 2019-07-22 21:09 | Critical Care Progress Note ---
Date of Service July 22, 2019 Assessment & Plan (1) Angioedema: Admitted to intensive care unit: Reason Critically Ill: 64-year-old female with significant angioedema with airway compromise requiring emergent endotracheal intubation for airway protection. NEURO - RASS goal -3 Sedation: Midazolam drip Pain: Fentanyl PRN CARDIAC/VASCULAR - Hypertension, hyperlipidemia: Hold on lisinopril secondary to angioedema. RESPIRATORY - Angioedema -Continue with deep sedation -Edema decreasing throughout day GI/NUTRITION - N.p.o. RENAL/LYTES - Decrease fluids to maintenance 75 mL/hour - Uribe in place - Strict I&Os. ENDO - No h/o DM or Thyroid Dz BSGs per unit protocol. ISS --> gtt per unit policy. HEME - Stable H&H ID - No concern for infectious contribution at this time. LINES/IV ACCESS - PIVs x2 Uribe Nasotracheal tube DVT PROPHYLAXIS - Lovenox SQ SCDs Present on Admission?: Yes (2) At high risk for airway occlusion: Present on Admission?: Yes (3) Difficult airway for intubation: Present on Admission?: Yes (4) Admitted to intensive care unit: Present on Admission?: Yes (5) Malignant neoplasm of upper-outer quadrant of left breast in female, estrogen receptor positive: Present on Admission?: Yes Subjective Intubated and sedated due to critical airway, angioedema has increased since intubation, per report from overnight staff she is started to decrease in the amount of facial swelling. Review of Systems Review of Systems: Unobtainable due to endotracheal tube Physical Exam Physical Exam: General: Sedated, withdraws all 4 extremities to noxious stimuli. Skin: Warm, dry, Head: Significant submental edema Ears, nose, mouth and throat: Left naris endotracheal tube, tongue slightly protruding from mouth secondary to edema Cardiovascular: Normal peripheral perfusion Respiratory: Rhonchorous sounds bilaterally Gastrointestinal: Non distended Musculoskeletal: No deformity Results & Data Vital Signs (Past 12 Hours) Vital Signs Pulse Resp BP Pulse Ox 07/22/19 20:38 95 H 17 96 07/22/19 18:00 105 H 154/85 H 98 07/22/19 17:35 103 H 16 97 07/22/19 17:30 106 H 168/93 H 98 07/22/19 17:00 102 H 148/78 H 96 07/22/19 16:32 101 H 147/82 H 97 07/22/19 16:00 103 H 159/82 H 97 07/22/19 15:30 101 H 163/93 H 96 07/22/19 15:00 99 H 151/87 H 96 07/22/19 14:50 106 H 16 97 07/22/19 14:30 101 H 153/88 H 96 07/22/19 14:10 100 H 154/88 H 95 07/22/19 13:59 104 H 165/91 H 94 07/22/19 13:10 91 H 121/73 96 07/22/19 12:10 97 H 139/77 95 07/22/19 11:40 94 H 130/77 96 07/22/19 11:20 94 H 16 96 07/22/19 11:10 96 H 127/75 96 07/22/19 10:40 94 H 140/79 96 07/22/19 10:10 94 H 140/80 96 07/22/19 09:10 103 H 156/93 H 97 Coding Level of Care Code Critical Care 1st 30-74 mins Diagnoses Angioedema T78.3XXA Encounter type: initial encounter At high risk for airway occlusion Z91.89 Difficult airway for intubation T88.4XXA Encounter type: initial encounter Admitted to intensive care unit Z78.9 Malignant neoplasm of upper-outer quadrant of left breast in female, estrogen receptor positive C50.412; Z17.0 Time Spent (min) 35 Comment I have personally spent 35 minutes of critical care time in the direct management of this patient. This is a life/limb threatening event. This includes time spent evaluating patient, direct bedside care, chart review, placing orders, interpretation of diagnostic studies, discussion with consultants, patient, and/or family members regarding treatment decisions, as well as other required patient management activities. This time is exclusive of all separately billable procedures, and teaching time and separate from and in addition to any other critical care service time. (1) Difficult airway for intubation Encounter type: initial encounter Qualified Code(s): T88.4XXA - Failed or difficult intubation, initial encounter (2) Angioedema Encounter type: initial encounter Qualified Code(s): T78.3XXA - Angioneurotic edema, initial encounter
[2019-07-23] MEDS: NORMOSOL-R 1,000 ML IV SCH ×2 (04:10→18:19)
[2019-07-23] MEDS: fentaNYL citrate 100 MCG/2 ML VIAL IV PRN ×7 (04:43→22:52)
[2019-07-23] MEDS: MIDAZOLAM HCL 125 MG/250 ML BAG IV SCH ×2 (04:58→16:44)
[2019-07-23 05:06] LABS: Basophils # (auto) 0.01 K/uL (0-0.2); Basophils % (auto) 0.1 %; Hematocrit (blood only) 34.3 % (37-47); Hemoglobin 11.4 g/dL (12.0-16.0); Immature Granulocytes # (auto) 0.03 K/uL (0.00-0.02); Immature Granulocytes % (auto) 0.2 %; Lymphocytes % (auto) 6.5 %; Mean Corpuscular Hemoglobin 32.2 pg (25-34); Mean Corpuscular Hgb Conc 33.2 g/dL (32-36); Mean Corpuscular Volume 96.9 fL (80-100); Mean Platelet Volume 9.5 fL (7.4-10.4); Monocytes # (auto) 0.41 K/uL (0.11-0.59); Monocytes % (auto) 3.3 %; Neutrophils # (auto) 11.12 K/uL (1.4-6.5); Neutrophils % (auto) 89.9 %; Platelet Count 263 K/uL (130-400); RDW Coefficient of Variation 13.3 % (11.5-14.5); RDW Standard Deviation 46.4 fL (36.4-46.3); Red Blood Count 3.54 M/uL (4.2-5.4); White Blood Count 12.37 K/uL (4.8-10.8)
[2019-07-23 05:35] LABS: BUN Creatinine Ratio 28.8 (10-20); Calcium 7.8 mg/dl (8.5-10.1); Est GFR (African American) 96.3; Est GFR (Non-African American) 83.1; Magnesium 2.2 mg/dl (1.8-2.4); Potassium 4.8 mmol/L (3.5-5.1)
[2019-07-23 05:41] LABS: Phosphorus 2.4 mg/dl (2.5-4.9)
[2019-07-23] MEDS: methylPREDNISolone 40 MG in SYRINGE 0 ML IV SCH (06:26)
--- NOTE | 2019-07-23 07:11 | XRay Report ---
XR chest 1V portable CLINICAL HISTORY: 64 years-old Female presenting with post intubation. TECHNIQUE: Portable upright AP view of the chest was obtained. COMPARISON: 07/22/2019. FINDINGS: Endotracheal tube terminates at the sindy. The sindy is suboptimally visualized. Cardiomediastinal silhouette normal. Multiple external leads overlie the thorax to grating evaluation. Lungs are mildly hyperinflated as on prior exam. No focal opacity. No large effusion or pneumothorax. Osseous structu res normal. Upper abdomen normal. IMPRESSION: 1. Endotracheal tube terminates at the sindy, which is not well identified. Retraction at least 1 t o 2 cm is recommended. 2. Hyperinflation may suggest underlying emphysema. No focal infiltrate to suggest pneumonia. The report will be called/faxed according to standard departmental protocol. ACT 112: Negative or not required by law. Electronically signed by: Tyrell Gaytan M.D. 07/23/2019 7:09 AM
--- NOTE | 2019-07-23 08:36 | XRay Report ---
XR chest 1V portable HISTORY: 64 years-old Female et tube acute respiratory failure COMPARISON: Chest radiograph 07/23/2019 at 6:21 AM TECHNIQUE: Portable AP view of the chest FINDINGS: Endotracheal tube overlies the midline, 4.4 cm superior to the sindy. Cardiomediastinal and hilar si lhouettes are within normal limits. Calcified plaque of the thoracic aortic arch. Hyperinflation. No pneumothorax, pleural effusion, overt pulmonary edema or focal airspace consolidation typical for pne umonia. Bilateral rotator cuff calcific tendinosis. IMPRESSION: Repositioned endotracheal tube now terminates 4.4 cm superior to the sindy. ACT 112: Negative or not required by law. The above report was generated using voice recognition software. It may contain grammatical, syntax o r spelling errors. Electronically signed by: Harish Coronel M.D. 07/23/2019 8:34 AM
[2019-07-23] MEDS: ENOXAPARIN INJ 30 MG/0.3 ML SYR SQ SCH (09:33)
[2019-07-23] MEDS: FAMOTIDINE 20 MG in SYRINGE 3 ML IV SCH ×2 (09:33→21:09)
--- NOTE | 2019-07-23 10:00 | Critical Care Progress Note ---
Date of Service Intubated and sedated. July 23, 2019 Assessment & Plan (1) Angioedema: Admitted to intensive care unit: Reason Critically Ill: 64-year-old female with significant angioedema with airway compromise requiring emergent endotracheal intubation for airway protection. NEURO - RASS goal -3 Sedation: Midazolam drip Pain: Fentanyl PRN CARDIAC/VASCULAR - Hypertension, hyperlipidemia: Hold on lisinopril secondary to angioedema. RESPIRATORY - Angioedema -Continue with deep sedation -Edema decreasing throughout day GI/NUTRITION - N.p.o. RENAL/LYTES - Decrease fluids to maintenance 75 mL/hour - Uribe in place - Strict I&Os. ENDO - No h/o DM or Thyroid Dz BSGs per unit protocol. ISS --> gtt per unit policy. HEME - Stable H&H ID - No concern for infectious contribution at this time. LINES/IV ACCESS - PIVs x2 Uribe Nasotracheal tube DVT PROPHYLAXIS - Lovenox SQ SCDs There is improvement in the angioedema I am hopeful that tomorrow we should be able to proceed with extubation. (2) At high risk for airway occlusion: (3) Difficult airway for intubation: (4) Admitted to intensive care unit: (5) Malignant neoplasm of upper-outer quadrant of left breast in female, estrogen receptor positive: Subjective Intubated and heavily sedated. Per report patient is able to wake up and follow commands during sedation vacation Review of Systems Review of Systems: Unobtainable due to endotracheal tube Physical Exam Physical Exam: General: Sedated, withdraws all 4 extremities to noxious stimuli. Skin: Warm, dry, Head: Improved submental edema Ears, nose, mouth and throat: Left naris endotracheal tube, tongue slightly protruding from mouth secondary to edema Cardiovascular: Normal peripheral perfusion Respiratory: Rhonchorous sounds bilaterally Gastrointestinal: Non distended Musculoskeletal: No deformity Results & Data Vital Signs (Past 12 Hours) Vital Signs Temp Pulse Resp BP Pulse Ox Pulse Ox 07/23/19 09:01 76 117/67 92 07/23/19 08:03 67 16 93 07/23/19 08:01 67 113/66 97 07/23/19 08:00 67 07/23/19 07:31 66 110/66 07/23/19 07:02 93 H 156/95 H 96 07/23/19 06:00 37.3 C 79 16 120/71 96 07/23/19 05:00 37.3 C 79 16 120/71 96 07/23/19 04:30 76 16 96 07/23/19 04:00 77 127/71 96 07/23/19 03:00 77 96 07/23/19 02:31 81 124/71 97 07/23/19 02:18 83 16 96 07/23/19 02:01 79 119/68 96 07/23/19 02:00 79 96 07/23/19 01:45 80 96 07/23/19 01:31 82 117/70 96 07/23/19 01:30 82 96 07/23/19 01:15 83 96 07/23/19 01:01 83 128/69 96 07/23/19 01:00 84 16 128/69 96 07/23/19 00:00 90 126/73 96 96 07/22/19 23:45 88 17 96 07/22/19 23:01 90 130/73 96 07/22/19 23:00 91 H 96 07/22/19 22:00 99 H 148/78 H 96 Coding Level of Care Code Critical Care 1st 30-74 mins Diagnoses Angioedema T78.3XXA Encounter type: initial encounter At high risk for airway occlusion Z91.89 Difficult airway for intubation T88.4XXA Encounter type: initial encounter Admitted to intensive care unit Z78.9 Malignant neoplasm of upper-outer quadrant of left breast in female, estrogen receptor positive C50.412; Z17.0 Time Spent (min) 40 Comment I have personally spent 40 minutes of critical care time in the direct management of this patient. This is a life/limb threatening event. This includes time spent evaluating patient, direct bedside care, chart review, placing orders, interpretation of diagnostic studies, discussion with consultants, patient, and/or family members regarding treatment decisions, as well as other required patient management activities. This time is exclusive of all separately billable procedures, and teaching time and separate from and in addition to any other critical care service time. (1) Difficult airway for intubation Encounter type: initial encounter Qualified Code(s): T88.4XXA - Failed or difficult intubation, initial encounter (2) Angioedema Encounter type: initial encounter Qualified Code(s): T78.3XXA - Angioneurotic edema, initial encounter
--- NOTE | 2019-07-23 18:09 | Hospitalist Progress Note ---
Date of Service July 23, 2019 Assessment & Plan (1) Angioedema: Present on admission with tongue swelling S/P emergent intubation Intubated and sedated on Vent support Currently on IV Solu-Medrol 40 q. 8 hours, Pepcid 20 b.i.d. Plan to extubate tomorrow Hypertension. We will discontinue Lisinopril on discharge BP stable History of left breast cancer status post lumpectomy Continue tamoxifen. Major depression/Bipolar/PTSD Depakote on hold since pt is NPO Deep venous thrombosis prophylaxis, on Lovenox. Subjective Pt was seen and examined Lying in bed sedated on vent support Physical Exam Physical Exam: General- Sedated on vent support Head- atraumatic Eyes- PERRL, EOMI, ENT- Intubated Neck- supple, no JVD Lungs- clear to auscultation Heart- regular rhythm; no murmur Abdomen- normal bowel sounds, soft, nontender Extremities- no calf tenderness Neuro- sedated Skin- warm & dry Results & Data Vital Signs (Past 12 Hours) Vital Signs Pulse Resp BP Pulse Ox 07/23/19 16:11 16 07/23/19 16:01 78 143/81 H 94 07/23/19 15:01 71 155/85 H 96 07/23/19 14:01 73 140/81 95 07/23/19 13:22 68 16 97 07/23/19 13:01 66 109/65 07/23/19 12:01 66 106/67 96 07/23/19 11:25 65 17 96 07/23/19 11:01 67 102/65 96 07/23/19 10:01 74 120/66 94 07/23/19 09:01 76 117/67 92 07/23/19 08:03 67 16 93 07/23/19 08:01 67 113/66 97 07/23/19 08:00 67 07/23/19 07:31 66 110/66 07/23/19 07:02 93 H 156/95 H 96 (1) Angioedema Encounter type: initial encounter Qualified Code(s): T78.3XXA - Angioneurotic edema, initial encounter
[2019-07-24] MEDS: fentaNYL citrate 100 MCG/2 ML VIAL IV PRN ×2 (01:35→03:53)
[2019-07-24] MEDS: MIDAZOLAM HCL 125 MG/250 ML BAG IV SCH (03:43)
[2019-07-24 05:23] LABS: Eosinophils # (auto) 0.01 K/uL (0-0.5); Eosinophils % (auto) 0.1 %; Hematocrit (blood only) 32.6 % (37-47); Hemoglobin 10.6 g/dL (12.0-16.0); Immature Granulocytes # (auto) 0.02 K/uL (0.00-0.02); Immature Granulocytes % (auto) 0.3 %; Lymphocytes # (auto) 1.24 K/uL (1.2-3.4); Lymphocytes % (auto) 15.9 %; Mean Corpuscular Hemoglobin 32.3 pg (25-34); Mean Corpuscular Hgb Conc 32.5 g/dL (32-36); Mean Corpuscular Volume 99.4 fL (80-100); Mean Platelet Volume 9.4 fL (7.4-10.4); Monocytes # (auto) 0.56 K/uL (0.11-0.59); Monocytes % (auto) 7.2 %; Neutrophils # (auto) 5.98 K/uL (1.4-6.5); Neutrophils % (auto) 76.5 %; Platelet Count 197 K/uL (130-400); RDW Coefficient of Variation 13.5 % (11.5-14.5); RDW Standard Deviation 48.4 fL (36.4-46.3); Red Blood Count 3.28 M/uL (4.2-5.4); White Blood Count 7.81 K/uL (4.8-10.8)
[2019-07-24 05:32] LABS: iSTAT Allen Test Pass; iSTAT Arterial Blood Gas HCO3 29 meg/L (19-24); iSTAT Arterial Blood Gas pCO2 40 mmHg (35-46); iSTAT Arterial Blood Gas pH 7.47 (7.35-7.45); iSTAT Arterial Blood Gas pO2 60 mmHg (80-95); iSTAT Carbon Dioxide 30 mmol/L (24-31); iSTAT Site L Radial
[2019-07-24 05:58] LABS: BUN Creatinine Ratio 18.7 (10-20); Calcium 7.8 mg/dl (8.5-10.1); Est GFR (African American) 102.9; Est GFR (Non-African American) 88.8; Magnesium 2.5 mg/dl (1.8-2.4); Potassium 4.1 mmol/L (3.5-5.1)
[2019-07-24 06:10] LABS: Phosphorus 0.9 mg/dl (2.5-4.9)
[2019-07-24] MEDS ORDERED: POTASSIUM PHOS 3 MMOL/1 ML INFUSION IV STA (06:20)
[2019-07-24] MEDS: NORMOSOL-R 1,000 ML IV SCH (06:38)
[2019-07-24] MEDS ORDERED: POTASSIUM PHOSPHATE 24 MMOL in SODIUM CHLORIDE 0.9% 500 ML IV ONE (06:45)
--- NOTE | 2019-07-24 07:40 | XRay Report ---
SINGLE VIEW CHEST CLINICAL HISTORY: Respiratory failure. FINDINGS: An AP, portable, upright chest radiograph is compared to study dated 07/23/2019. The examina tion is degraded by portable technique, apical lordotic positioning, and patient rotation. An endotra cheal tube is unchanged in position. The cardiomediastinal silhouette is unremarkable noting atherosc lerotic calcification of the thoracic aorta. The lungs and pleural spaces are clear. No pneumothorax is seen. The skeletal structures are osteopenic. The bony thorax is grossly intact. IMPRESSION: No active disease in the chest. ACT 112: Negative or not required by law. Electronically signed by: Cesario Hernandez M.D. 07/24/2019 7:39 AM
[2019-07-24] MEDS: FAMOTIDINE 20 MG in SYRINGE 3 ML IV SCH (11:34)
[2019-07-24] MEDS: ENOXAPARIN INJ 30 MG/0.3 ML SYR SQ SCH ×2 (11:34→11:48)
--- NOTE | 2019-07-24 15:32 | Electrocardiogram Report ---
Test Reason : Blood Pressure : / mmHG Vent. Rate : 094 BPM Atrial Rate : 094 BPM P-R Int : 136 ms QRS Dur : 078 ms QT Int : 350 ms P-R-T Axes : 064 043 059 degrees QTc Int : 437 ms Normal sinus rhythm Normal ECG When compared with ECG of 08-SEP-1997 07:35, No significant change was found Confirmed by Se Segura ([id number]) on 07/24/2019 3:32:04 PM Referred By: REFERRED SELF Confirmed By:Se Segura
[2019-07-24] MEDS ORDERED: ACETAMINOPHEN 325 MG TAB ONE (17:29)
[2019-07-24] MEDS ORDERED: ACETAMINOPHEN 325 MG TAB PO STA (17:48)
[2019-07-24 19:37] LABS: BUN Creatinine Ratio 16.1 (10-20); Calcium 8.7 mg/dl (8.5-10.1); Creatinine Clr Calc Pharmacy 65.2 ml/min; Est GFR (African American) 109.5; Est GFR (Non-African American) 94.5; Potassium 3.7 mmol/L (3.5-5.1)
[2019-07-24 19:43] LABS: Phosphorus 2.1 mg/dl (2.5-4.9)
--- NOTE | 2019-07-24 19:57 | Hospitalist Progress Note ---
Date of Service July 24, 2019 Assessment & Plan (1) Angioedema: Present on admission with tongue swelling S/P emergent intubation for airway compromise S/P extubation today Saturated well on RA IV Solu-Medrol and pepcid Passed bedside swallow Hypertension. We will discontinue Lisinopril on discharge BP stable History of left breast cancer status post lumpectomy Continue tamoxifen. Major depression/Bipolar/PTSD Depakote on hold since pt is NPO Deep venous thrombosis prophylaxis, on Lovenox. Disposition Plan to transfer to Medical Subjective Pt was seen and examined Extubated and sitting in chair with no distress Nurse said that pt feels weak She is asking for her Denies any chest pain, palpitation, dizziness and SOB Physical Exam Physical Exam: General- Sedated on vent support Head- atraumatic Eyes- PERRL, EOMI, ENT- Intubated Neck- supple, no JVD Lungs- clear to auscultation Heart- regular rhythm; no murmur Abdomen- normal bowel sounds, soft, nontender Extremities- no calf tenderness Neuro- sedated Skin- warm & dry Results & Data Vital Signs (Past 12 Hours) Vital Signs Temp Pulse Pulse Resp BP BP Pulse Ox 07/24/19 18:46 36.7 C 80 16 160/77 H 98 07/24/19 16:00 93 H 17 07/24/19 15:45 95 H 18 07/24/19 15:30 101 H 13 07/24/19 15:15 101 H 13 90 07/24/19 15:00 104 H 17 91 07/24/19 14:45 89 23 90 07/24/19 14:30 93 H 21 88 L 07/24/19 14:25 96 H 07/24/19 14:02 90 165/90 H 92 07/24/19 14:00 90 92 07/24/19 13:45 87 92 07/24/19 13:32 92 H 165/90 H 95 07/24/19 13:30 98 H 92 07/24/19 13:15 89 98 07/24/19 13:02 85 157/84 H 98 07/24/19 13:00 85 98 07/24/19 12:45 85 98 07/24/19 12:32 81 159/82 H 99 07/24/19 12:30 85 100 07/24/19 12:15 88 100 07/24/19 12:02 89 162/91 H 100 07/24/19 12:00 88 100 07/24/19 11:45 89 99 07/24/19 11:32 93 H 178/86 H 95 07/24/19 11:30 102 H 97 07/24/19 11:15 96 H 94 07/24/19 11:02 101 H 154/87 H 93 07/24/19 11:00 97 H 98 07/24/19 10:45 100 H 98 07/24/19 10:30 100 H 94 07/24/19 10:15 114 H 98 07/24/19 10:02 88 166/92 H 97 07/24/19 10:00 81 97 07/24/19 09:45 81 96 07/24/19 09:32 80 154/85 H 95 07/24/19 09:30 83 95 07/24/19 09:15 85 96 07/24/19 09:02 89 162/87 H 96 07/24/19 09:00 93 H 96 07/24/19 08:45 90 97 07/24/19 08:32 84 187/100 H 99 07/24/19 08:30 112 H 99 07/24/19 08:15 77 98 07/24/19 08:02 76 144/82 H 97 07/24/19 08:00 78 97 (1) Angioedema Encounter type: initial encounter Qualified Code(s): T78.3XXA - Angioneurotic edema, initial encounter
[2019-07-24] MEDS: AMLODIPINE BESYLATE 5 MG TAB PO SCH (20:21)
[2019-07-24] MEDS: DIVALPROEX DELAY RELEASE 500 MG TAB PO SCH (20:21)
[2019-07-24] MEDS: TAMOXIFEN CITRATE 10 MG TABLET PO SCH (20:21)
--- NOTE | 2019-07-24 20:30 | Critical Care Progress Note ---
Date of Service July 24, 2019 Assessment & Plan (1) Angioedema: Admitted to intensive care unit: Reason Critically Ill: 64-year-old female with significant angioedema with airway compromise requiring emergent endotracheal intubation for airway protection. NEURO - Discontinue sedation following extubation CARDIAC/VASCULAR - Hypertension reinstitute amlodipine hyperlipidemia: Reinstitute statin Hold on lisinopril secondary to angioedema. RESPIRATORY - Review video laryngoscopy notes -Patient successfully extubated and no stridor during next 6 hours of ICU observation GI/NUTRITION - Passed swallow study given prolonged intubation RENAL/LYTES - Stopped IV fluids - Uribe in place - Strict I&Os. ENDO - No h/o DM or Thyroid Dz BSGs per unit protocol. ISS --> gtt per unit policy. HEME - Stable H&H ID - No concern for infectious contribution at this time. LINES/IV ACCESS - PIVs x2 Uribe to discontinue tomorrow DVT PROPHYLAXIS - Lovenox SQ SCDs Patient is significantly weak. I believe she would benefit from an additional day to recover. She is slated for occupational and physical therapy evaluation tomorrow as well as discontinuing her Uribe catheter as she is having vigorous output at this time, which I believe is secondary to the resolution of significant edema. Having observe the patient since extubation there is no stridor, she is able to sit in a chair I believe she is stable for downgrade out of the ICU. (2) At high risk for airway occlusion: (3) Difficult airway for intubation: (4) Malignant neoplasm of upper-outer quadrant of left breast in female, estrogen receptor positive: (5) Reversible airway obstruction: (6) Weakness acquired in ICU: Subjective Intubated and heavily sedated. Per report patient is able to wake up and follow commands during sedation vacation Review of Systems Review of Systems: Unobtainable due to endotracheal tube Physical Exam Physical Exam: General: Sedated, withdraws all 4 extremities to noxious stimuli. Skin: Warm, dry, Head: Submental edema resolved Ears, nose, mouth and throat: Left naris endotracheal tube, tongue significantly decreased swelling, able to see posterior oropharynx Cardiovascular: Normal peripheral perfusion Respiratory: Rhonchorous sounds bilaterally Gastrointestinal: Non distended Musculoskeletal: No deformity Results & Data Vital Signs (Past 12 Hours) Vital Signs Temp Pulse Pulse Resp BP BP Pulse Ox 07/24/19 18:46 36.7 C 80 16 160/77 H 98 01/16/20 16:00 93 H 17 07/24/19 15:45 95 H 18 07/24/19 15:30 101 H 13 07/24/19 15:15 101 H 13 90 07/24/19 15:00 104 H 17 91 07/24/19 14:45 89 23 90 07/24/19 14:30 93 H 21 88 L 07/24/19 14:25 96 H 07/24/19 14:02 90 165/90 H 92 07/24/19 14:00 90 92 07/24/19 13:45 87 92 07/24/19 13:32 92 H 165/90 H 95 07/24/19 13:30 98 H 92 07/24/19 13:15 89 98 07/24/19 13:02 85 157/84 H 98 07/24/19 13:00 85 98 07/24/19 12:45 85 98 07/24/19 12:32 81 159/82 H 99 07/24/19 12:30 85 100 07/24/19 12:15 88 100 07/24/19 12:02 89 162/91 H 100 07/24/19 12:00 88 100 07/24/19 11:45 89 99 07/24/19 11:32 93 H 178/86 H 95 07/24/19 11:30 102 H 97 07/24/19 11:15 96 H 94 07/24/19 11:02 101 H 154/87 H 93 07/24/19 11:00 97 H 98 07/24/19 10:45 100 H 98 07/24/19 10:30 100 H 94 07/24/19 10:15 114 H 98 07/24/19 10:02 88 166/92 H 97 07/24/19 10:00 81 97 07/24/19 09:45 81 96 07/24/19 09:32 80 154/85 H 95 07/24/19 09:30 83 95 07/24/19 09:15 85 96 07/24/19 09:02 89 162/87 H 96 07/24/19 09:00 93 H 96 07/24/19 08:45 90 97 07/24/19 08:32 84 187/100 H 99 07/24/19 08:30 112 H 99 Laboratory Results 01/07/24/19 07/24/19 Range/Units 18:56 05:20 05:05 WBC (4.8-10.8) K/uL RBC (4.2-5.4) M/uL Hgb (12.0-16.0) g/dL Hct (37-47) % MCV (80-100) fL MCH (25-34) pg MCHC (32-36) g/dL RDW Std Deviation (36.4-46.3) fL RDW Coeff of Rickey (11.5-14.5) % Plt Count (130-400) K/uL MPV (7.4-10.4) fL Immature Gran % (Auto) % Neut % (Auto) % Lymph % (Auto) % Lewis % (Auto) % Eos % (Auto) % Baso % (Auto) % Immature Gran # (Auto) (0.00-0.02) K/uL Neut # (Auto) (1.4-6.5) K/uL Lymph # (Auto) (1.2-3.4) K/uL Lewis # (Auto) (0.11-0.59) K/uL Eos # (Auto) (0-0.5) K/uL Baso # (Auto) (0-0.2) K/uL Sample Site L Radial POC pH 7.47 H (7.35-7.45) POC pCO2 40 (35-46) mmHg POC pO2 60 L (80-95) mmHg POC HCO3 29 H (19-24) pepito/L POC Total CO2 30 (24-31) mmol/L POC Base Excess 5.0 H (-9-1.8) pepito/L POC ABG O2 Sat 92.0 (90-95) % Keny Test Pass O2 Delivery Device Ventilator POC O2 Rate 16 Minute Ventilation 30 Tidal Volume 350 PEEP 8 Sodium 138 139 (136-145) mmol/L Potassium 3.7 4.1 (3.5-5.1) mmol/L Chloride 103 106 (98-107) mmol/L Carbon Dioxide 30 33 H (21-32) mmol/L Anion Gap 4.0 0 L (3-11) BUN 10 13 (7-18) mg/dl Creatinine 0.61 0.71 (0.6-1.2) mg/dl Est Cr Clr Drug Dosing 65.2 56.0 ml/min Est GFR ( Amer) 109.5 102.9 Est GFR (Non-Af Amer) 94.5 88.8 BUN/Creatinine Ratio 16.1 18.7 (10-20) Glucose 117 H 117 H (70-99) mg/dl POC Glucose (70-99) mg/dl Calcium 8.7 7.8 L (8.5-10.1) mg/dl Phosphorus 2.1 L D 0.9 L* D (2.5-4.9) mg/dl Magnesium 2.5 H (1.8-2.4) mg/dl 07/24/19 07/23/19 Range/Units 05:05 21:34 WBC 7.81 (4.8-10.8) K/uL RBC 3.28 L (4.2-5.4) M/uL Hgb 10.6 L (12.0-16.0) g/dL Hct 32.6 L (37-47) % MCV 99.4 (80-100) fL MCH 32.3 (25-34) pg MCHC 32.5 (32-36) g/dL RDW Std Deviation 48.4 H (36.4-46.3) fL RDW Coeff of Rickey 13.5 (11.5-14.5) % Plt Count 197 (130-400) K/uL MPV 9.4 (7.4-10.4) fL Immature Gran % (Auto) 0.3 % Neut % (Auto) 76.5 % Lymph % (Auto) 15.9 % Lewis % (Auto) 7.2 % Eos % (Auto) 0.1 % Baso % (Auto) 0.0 % Immature Gran # (Auto) 0.02 (0.00-0.02) K/uL Neut # (Auto) 5.98 (1.4-6.5) K/uL Lymph # (Auto) 1.24 (1.2-3.4) K/uL Lewis # (Auto) 0.56 (0.11-0.59) K/uL Eos # (Auto) 0.01 (0-0.5) K/uL Baso # (Auto) 0.00 (0-0.2) K/uL Sample Site POC pH (7.35-7.45) POC pCO2 (35-46) mmHg POC pO2 (80-95) mmHg POC HCO3 (19-24) pepito/L POC Total CO2 (24-31) mmol/L POC Base Excess (-9-1.8) pepito/L POC ABG O2 Sat (90-95) % Keny Test O2 Delivery Device POC O2 Rate Minute Ventilation Tidal Volume PEEP Sodium (136-145) mmol/L Potassium (3.5-5.1) mmol/L Chloride (98-107) mmol/L Carbon Dioxide (21-32) mmol/L Anion Gap (3-11) BUN (7-18) mg/dl Creatinine (0.6-1.2) mg/dl Est Cr Clr Drug Dosing ml/min Est GFR ( Amer) Est GFR (Non-Af Amer) BUN/Creatinine Ratio (10-20) Glucose (70-99) mg/dl POC Glucose 127 H (70-99) mg/dl Calcium (8.5-10.1) mg/dl Phosphorus (2.5-4.9) mg/dl Magnesium (1.8-2.4) mg/dl Coding Level of Care Code 43452 Subseq Hosp Care Lvl 3 Diagnoses Angioedema T78.3XXA Encounter type: initial encounter At high risk for airway occlusion Z91.89 Difficult airway for intubation T88.4XXA Encounter type: initial encounter Malignant neoplasm of upper-outer quadrant of left breast in female, estrogen receptor positive C50.412; Z17.0 Reversible airway obstruction J98.8 Weakness acquired in ICU R53.1 (1) Angioedema Encounter type: initial encounter Qualified Code(s): T78.3XXA - Angioneurotic edema, initial encounter (2) Difficult airway for intubation Encounter type: initial encounter Qualified Code(s): T88.4XXA - Failed or difficult intubation, initial encounter
--- NOTE | 2019-07-24 20:42 | Procedure Note ---
Procedure Note Date of Service July 24, 2019 Procedure Date: Noted above Procedure: Video laryngoscopy Indication: Acute respiratory failure secondary to acute airway obstruction secondary to angioedema Post-procedure Diagnosis: same as above Prior to Procedure: Informed Consent: Risks and benefits previously discussed with the patient and informed consent obtained Performing provider: Oleg Lopez DO The identity of the patient was confirmed and a bedside time out was performed. Description of Procedure: Utilizing a glide scope #4 blade I was able to visualize the epiglottis as well as the endotracheal tube passing into the vocal cords. The epiglottis is crisp and well-defined, I am able to visualize the endotracheal tube and the vocal cords which are significantly less edematous than during the initial intubation. There is very minimal to mild edema of some of the hypopharyngeal tissues however this is significantly improved, I am able to visualize the posterior palate easily. Complications: None Findings: Significantly decreased angioedema appears appropriate for trial of extubation. Specimens: Not applicable Estimated blood loss: Zero Coding CPT Codes ENT - ENT: 54208 Indrect Laryngoscopy,diagnostic ([id number])
[2019-07-24] MEDS ORDERED: PRAVASTATIN SOD 20 MG TAB PO SCH (21:00)
[2019-07-25] MEDS ORDERED: KETOROLAC TROMETHAMINE 15 MG/ML VIAL IV ONE (02:05)
[2019-07-25] MEDS ORDERED: ACETAMINOPHEN 325 MG TAB PO PRN (02:05)
[2019-07-25 07:23] VITALS: BP 163/86; PULSE 83; TEMP 97.9; O2SAT 95
[2019-07-25] MEDS: TAMOXIFEN CITRATE 10 MG TABLET PO SCH (08:43)
[2019-07-25] MEDS: DIVALPROEX DELAY RELEASE 500 MG TAB PO SCH (08:44)
[2019-07-25] MEDS: AMLODIPINE BESYLATE 5 MG TAB PO SCH (08:44)
[2019-07-25] MEDS ORDERED: POTASSIUM PHOS 3 MMOL/1 ML INFUSION IV STA (09:05)
[2019-07-25] MEDS: ENOXAPARIN INJ 30 MG/0.3 ML SYR SQ SCH (09:21)
[2019-07-25] MEDS ORDERED: POTASSIUM PHOSPHATE 15 MMOL in SODIUM CHLORIDE 0.9% 250 ML IV ONE (09:30)
--- NOTE | 2019-07-25 16:03 | Hospitalist Progress Note ---
Date of Service July 25, 2019 Assessment & Plan (1) Angioedema: Present on admission with tongue swelling Possible related to S/P emergent intubation for airway compromise S/P extubation today Saturated well on RA IV Solu-Medrol and pepcid received in the ER Case discussed with Strategic Debriefing Specialist and recommended not to give any steroid, PPI or H2 enrique since pt got worst after receiving them Tolerated diet very well Lisinopril discontinued Hypertension. Discontinued Lisinopril on discharge Will increase amlodipine 10mg daily Monitor BP outpatient History of left breast cancer status post lumpectomy Continue tamoxifen. Major depression/Bipolar/PTSD Depakote on hold since pt is NPO Deep venous thrombosis prophylaxis, on Lovenox. Disposition Follow up with Dr. Peña on 07/31 @ 11:05 AM Subjective Pt was seen and examined Lying in bed with no distress Pt said that she feels fine She said that she walk around with therapy today with no discomfort Denies any chest pain, palpitation, dizziness and SOB Physical Exam Physical Exam: General- Sedated on vent support Head- atraumatic Eyes- PERRL, EOMI, ENT- Intubated Neck- supple, no JVD Lungs- clear to auscultation Heart- regular rhythm; no murmur Abdomen- normal bowel sounds, soft, nontender Extremities- no calf tenderness Neuro- sedated Skin- warm & dry Results & Data Vital Signs (Past 12 Hours) Vital Signs Temp Pulse Resp BP Pulse Ox 07/25/19 07:22 36.6 C 83 16 163/86 H 95 (1) Angioedema Encounter type: initial encounter Qualified Code(s): T78.3XXA - Angioneurotic edema, initial encounter
--- NOTE | 2019-07-26 08:08 | Discharge Summary ---
Date of Service July 25, 2019 Admission HPI Per Admitting Provider CHIEF COMPLAINT: Angioedema. HISTORY OF PRESENT ILLNESS: This is a 64-year-old female with past medical history significant for hypertension, hyperlipidemia, osteoporosis, primary open angle glaucoma, major depression, anxiety, PTSD, bipolar disorder, tobacco abuse, malignant neoplasm of the left side of the breast status post left breast lumpectomy, presents with angioedema of the tongue, status post intubation. Currently the patient is heavily sedated and intubated. Could not get any history from the patient. No family in the room. As per the ER notes and critical care notes, the patient about a week ago had allergic reactions which were causing her tongue to swell. She says she is unable to swallow, but has no trouble breathing. This happened one week ago in [place] and thought this was mumps, again today it happened around 5:30 p.m. and she came to the ER where her vitals were okay.She is on lisinopril possible cause of the symptoms. There was no stridor. She received IV Decadron, IV Benadryl, IV Pepcid, and it was not improving, it was getting a little worse. She was status post IV TXA as well as 2 units of IV FFP and critical care was consulted and because of impending respiratory obstruction, the patient is status post intubation through nasal intubation, and sedated. Hemodynamics are stable. Admission Exam Per Admitting Provider GENERAL: The patient is status post intubation and sedation. VITAL SIGNS: Temperature 36, pulse 65, respiratory rate 16, blood pressure 111/66, oxygen 97% on room air. HEENT: No pallor, no icterus. Pupils very sluggish to react. NECK: No JVD, no neck masses. Throat is swollen. CARDIOVASCULAR: S1, S2 heard, regular rate and rhythm, no murmur, no gallop. RESPIRATORY SYSTEM: Normal AP diameter. No accessory muscle use. No wheezing, no crackles. ABDOMEN: Soft, bowel sounds present. No distention. CENTRAL NERVOUS SYSTEM: Status post sedation and intubation. EXTREMITIES: No edema, no erythema. Principal Diagnosis Angioedema: Hypertension. History of left breast cancer Major depression/Bipolar/PTSD Discharge Exam General- Sedated on vent support Head- atraumatic Eyes- PERRL, EOMI, ENT- Intubated Neck- supple, no JVD Lungs- clear to auscultation Heart- regular rhythm; no murmur Abdomen- normal bowel sounds, soft, nontender Extremities- no calf tenderness Neuro- sedated Skin- warm & dry Discharge Data Allergies Allergy/AdvReac Type Severity Reaction Status Date / Time lisinopril Allergy Severe Angioedema Verified 07/21/19 21:44 pseudoephedrine AdvReac Mild Palpitation Verified 07/21/19 21:00 s sertraline [From Zoloft] AdvReac Mild "SKIN Verified 07/21/19 21:00 CRAWLING" simvastatin AdvReac Mild MYALGIA Verified 07/21/19 21:00 Consultations 07/21/19 20:33 Consult Case Management - Discharge Planning Routine 07/21/19 20:35 Consult Supervisor [employer] Routine 07/21/19 20:58 Consult Case Management - Discharge Planning Routine 07/22/19 00:45 Consult Case Management - Discharge Planning Routine Ordered Studies XR chest 1V portable CLINICAL HISTORY: Respiratory failure COMPARISON STUDY: No previous studies for comparison. FINDINGS: The heart is normal in size. The patient is mildly hyperinflated. There is no focal pulmonary consolidation. There is no failure. There are no pleural effusions. There are minimal basilar atelectatic changes. There is an endotracheal tube 22 mm above the sindy.[There is evidence for right shoulder calcific tendinitis. IMPRESSION: 1. Endotracheal tube 22 mm above the sindy 2. No evidence of focal pulmonary consolidation 3. No evidence of failure ACT 112: Negative or not required by law. Electronically signed by: Gilbert Baez M.D. 07/22/2019 7:05 AM Dictated: 07/22/19 0704 Transcribed: 07/22/19 0704 XR chest 1V portable CLINICAL HISTORY: 64 years-old Female presenting with post intubation. TECHNIQUE: Portable upright AP view of the chest was obtained. COMPARISON: 07/22/2019. FINDINGS: Endotracheal tube terminates at the sindy. The sindy is suboptimally visualized. Cardiomediastinal silhouette normal. Multiple external leads overlie the thorax to grating evaluation. Lungs are mildly hyperinflated as on prior exam. No focal opacity. No large effusion or pneumothorax. Osseous structures normal. Upper abdomen normal. IMPRESSION: 1. Endotracheal tube terminates at the sindy, which is not well identified. Retraction at least 1 to 2 cm is recommended. 2. Hyperinflation may suggest underlying emphysema. No focal infiltrate to suggest pneumonia. The report will be called/faxed according to standard departmental protocol. ACT 112: Negative or not required by law. Electronically signed by: Tyrell Gaytan M.D. 07/23/2019 7:09 AM Dictated: 07/23/19706 Transcribed: 07/23/19706 XR chest 1V portable HISTORY: 64 years-old Female et tube acute respiratory failure COMPARISON: Chest radiograph 07/23/2019 at 6:21 AM TECHNIQUE: Portable AP view of the chest FINDINGS: Endotracheal tube overlies the midline, 4.4 cm superior to the sindy. Cardiomediastinal and hilar silhouettes are within normal limits. Calcified plaque of the thoracic aortic arch. Hyperinflation. No pneumothorax, pleural effusion, overt pulmonary edema or focal airspace consolidation typical for pneumonia. Bilateral rotator cuff calcific tendinosis. IMPRESSION: Repositioned endotracheal tube now terminates 4.4 cm superior to the sindy. ACT 112: Negative or not required by law. The above report was generated using voice recognition software. It may contain grammatical, syntax or spelling errors. Electronically signed by: Harish Coronel M.D. 07/23/2019 8:34 AM Dictated: 07/23/19 08 Transcribed: 07/23/19832 SINGLE VIEW CHEST CLINICAL HISTORY: Respiratory failure. FINDINGS: An AP, portable, upright chest radiograph is compared to study dated 07/23/2019. The examination is degraded by portable technique, apical lordotic positioning, and patient rotation. An endotracheal tube is unchanged in position. The cardiomediastinal silhouette is unremarkable noting atherosclerotic calcification of the thoracic aorta. The lungs and pleural spaces are clear. No pneumothorax is seen. The skeletal structures are osteopenic. The bony thorax is grossly intact. IMPRESSION: No active disease in the chest. ACT 112: Negative or not required by law. Electronically signed by: Cesario Hernandez M.D. 07/24/2019 7:39 AM Dictated: 07/24/1938 Transcribed: 07/24/19737 Hospital Course (1) Angioedema: Present on admission with tongue swelling Possible related to S/P emergent intubation for airway compromise S/P extubation today Saturated well on RA IV Solu-Medrol and pepcid received in the ER Case discussed with Supervisor [employer] and recommended not to give any steroid, PPI or H2 enrique since pt got worst after receiving them Tolerated diet very well Lisinopril discontinued Hypertension. Discontinued Lisinopril on discharge Will increase amlodipine 10mg daily Monitor BP outpatient History of left breast cancer status post lumpectomy Continue tamoxifen. Major depression/Bipolar/PTSD Depakote on hold since pt is NPO Deep venous thrombosis prophylaxis, on Lovenox. Disposition Follow up with Dr. Peña on 07/31 @ 11:05 AM Total Time Total Time Spent Total Time Spent (In Minutes): 35 minutes Total Time Includes: Examination of the Patient, Discharge Planning, Medication Reconciliation, Communication With Other Providers and Other Discharge Plan Discharge Items Patient Disposition: Home - Self-Care Reason For Visit: ANGIOEDEMA Discharge Diagnosis: Angioedema: Hypertension. History of left breast cancer Major depression/Bipolar/PTSD Activity: Resume your previous activity Non-emergency contact: Primary Care Provider Call non-emergency contact if: you have any medication questions Follow-up/Referrals: Jarad Peña MD [Primary Care Provider] - Diet: Heart Healthy Addtl Attending Provider Instructions: Follow up with your primary care provider Dr. Peña on 07/31 @ 11:05 AM Discontinue Lisinopril Monitor your blood pressure and bring blood pressure log at your next appointment with your provider Amlodipine increased to 10mg daily Pending Studies at Discharge: No Stand-Alone Forms: My Index, Smoking Cessation Medications and DC Order Prescriptions: New amlodipine 10 mg tablet 10 mg PO DAILY Qty: 30 RF: 0 Continued tamoxifen 20 mg tablet 20 mg PO DAILY RF: 0 fluocinonide 0.05 % cream 1 applic TOP QID PRN (Reason: itching) Qty: 60 RF: 1 latanoprost 0.005 % Drops 1 drp OPB HS RF: 0 divalproex [Depakote] 500 mg Tablet,Delayed Release (Dr/Ec) 500 mg PO QAM RF: 0 pravastatin 20 mg Tablet 20 mg PO HS RF: 0 montelukast 10 mg tablet 10 mg PO DAILY RF: 0 Discontinued amlodipine 5 mg Tablet 5 mg PO QAM RF: 0 lisinopril 5 mg Tablet 5 mg PO QAM RF: 0 Discharge Orders: Discharge Order (Routine); Ordered 07/25/19 Ordered By: Lisa Laguerre Admission Data Admit Date/Time: 07/21/19 20:34 Attending Provider: Lisa Laguerre Admit Provider: Zeeshan Valdez Primary Care Provider: Jarad Peña Other Providers: Chaka Lopez Other Interventions: Discharge Summary Assessment (RN) Last Done: 07/25/19 16:40 DC Date/Time DO NOT enter until pt leaves facility: 07/25/19 18:06
--- NOTE | 2019-07-28 09:22 | Coding Query ---
CODING QUERY To promote full compliance with coding requirements relating to patient care, provider participation is requested in all cases of nursery nurse uncertainty. Please assist us with the question(s) below: Coding Question(s): Impeding Respiratory Failure is documented in the record as well as documentation on the 07/24/19 Procedure Note of Acute Respiratory Failure. The Discharge Summary does not mention respiratory failure. Please specify below, in your clinical opinion, regarding respiratory failure. ( ) Acute Respiratory Failure was treated ( ) Impending Respiratory Failure with No Acute Respiratory Failure was treated ( ) There was No Impending and No Acute Respiratory Failure ( x ) Other: Please Specify____Angioedema with airway compromise Physician's Response(s): Thank you Jodi Leonardo Principal Diagnosis: "that condition established after study, to be chiefly responsible for occasioning the admission of the patient to the hospital for care." Co-Existing Principal Diagnosis: "when two or more diagnoses equally meet the criteria for principal diagnosis as determined by the circumstances of admission, diagnostic work up, and/or therapy provided, and the Alphabetic Index, Tabular List, or another coding guideline does not provide sequencing direction, any one of the diagnoses may be sequenced first." "When the physician has documented what appears to be a current diagnosis in the body of the record, but has not included the diagnosis in the final diagnostic statement, the physician should be asked whether the diagnosis should be added." (Source Coding [facility] 2 QTR90. p3-4) STACY
== END 2019-07-25 18:06 | disposition home or self-care (01) | DRG 916 ==
LOC: ED 18:32 → 1E 20:34 → 4W 07-24 18:42

== ENCOUNTER 2025-01-13 20:52 | Inpatient (IN) ==
[2025-01-13 20:57] VITALS: TEMP 98.2
[2025-01-13] MEDS: ALBUT/IPRATROP 3MG/0.5MG NEB 3 ML VIAL NEB STA (21:33)
[2025-01-13] MEDS: SODIUM CHLORIDE 0.9% 500 ML IV ONE (21:34)
--- NOTE | 2025-01-13 21:48 | Emergency Department Note ---
Impression & Plan Acute dyspnea, Multifocal pneumonia, Leukocytosis, Elevated troponin ED Provider Note HISTORY OF PRESENT ILLNESS: Patient is a 69-year-old female presenting with cough and shortness of breath. Patient reports for the last 3 to 4 days she has been having significant shortness of breath and been unable to get up out of bed secondary to weakness and feeling generally unwell. She states that "I have not ate or drank anything in 3 days because I have not been able to get out of bed." She denies any chest pain. Denies any DVT or PE history. She is not on any anticoagulation or antiplatelet therapies. Denies any fevers at home over the last few days. Patient reports that just over a week ago she completed a course of amoxicillin for a bacterial sinus and "lung infection." She reports she was also on a prednisone taper and is currently on 5 mg of prednisone daily. She states she takes prednisone 5 mg daily at baseline for history of polymyalgia rheumatica. That she has been coughing over the last 3 days and her cough is productive of a white sputum. Denies any hemoptysis. ROS: as above PHYSICAL EXAM: Constitutional: Patient appears in no acute distress. HENT: Head: Normocephalic and atraumatic. Eyes: EOMI, PERRL Mouth/Throat: Mucous membranes moist. Neck: Trachea midline. Neck supple. Cardiovascular: Tachycardic with regular rhythm. No murmurs, rubs or gallops. Intact distal pulses. Pulmonary/Chest: No respiratory distress. Breath sounds clear and equal bilaterally. Expiratory wheezes bilaterally. Abdominal: Abdomen soft, no tenderness, rebound or guarding. Musculoskeletal: No edema, tenderness or deformity noted. Skin: Warm and dry. No rash, erythema, pallor or cyanosis Psychiatric: Appropriate mood and affect for situation. Neurological: Alert and keenly responsive. CN II-XII grossly intact, moving all extremities equally and fully. MDM: - Vitals signs showed tachycardia. - History obtained via patient. History as above. - Chronic conditions affecting care: depression; HTN; HLD; breast cancer; COPD; bipolar disorder - Differential diagnoses include, but are not limited to: Congestive heart failure; acute coronary syndrome; COPD/asthma exacerbation; pulmonary edema; pulmonary embolism; pneumonia; pneumothorax; viral syndrome - Order placed for continuous cardiac monitoring. At this time, monitor showed rate of 121 bpm with normal sinus rhythm, per my interpretation. - External medical records reviewed. Radiation oncology visit note dated 09/21/2023 was reviewed. Patient followed in their clinic for malignant neoplasm of her left breast. - EKG image interpreted by myself showed normal sinus rhythm. Rate tachycardic at 130 bpm. QT 278. No acute ischemic changes. However, significant artifact to baseline of the EKG due to the patient's breathing. - Laboratory workup interpreted by myself showed leukocytosis (WBC 15.61); normal PT/INR; hyponatremia (Na 132); elevated anion (12); hyperglycemia (glucose 273); elevated troponin (23.8) - Viral respiratory panel negative - CXR image by myself shows what appears to be right sided pneumonia, per my interpretation. - CT PE obtained given patient's dyspnea and tachycardia. CT PE negative for PE. Noted to have multifocal pneumonia involving the lingula, right upper and middle lobes - Blood cultures, procalcitonin and lactate ordered. - IV rocephin and PO azithromycin ordered - Discussion was had with porter sample case about patient's case and need for admission - Hospitalist, Dr. Valdez, consulted for admission at 23:05. - Patient admitted to the [facility] service for further evaluation and management. ASSESSMENT AND PLAN: Diagnosis: acute dyspnea; multifocal pneumonia; leukocytosis; elevated troponin Plan: admit Past Med/Surg History Problem List (Updated 01/13/25 @ 23:10 by Nelda Ames MD) Elevated troponin (Acute) Leukocytosis (Acute) Multifocal pneumonia (Acute) Acute dyspnea (Acute) Weakness acquired in ICU Reversible airway obstruction At high risk for airway occlusion Difficult airway for intubation Admitted to intensive care unit Angioedema (Acute) Malignant neoplasm of upper-outer quadrant of left breast in female, estrogen receptor positive (Chronic 10/08/18) Hypercholesteremia (Chronic) Hypertension (Chronic) Alcohol abuse (Acute) Alcohol abuse (Acute) Alcohol abuse (Acute) Depression (Acute) Overdose (Acute) Medical History (Updated 01/13/25 @ 23:10 by Nelda Ames MD) Allergic angioedema Osteopenia Tobacco abuse ASCVD (arteriosclerotic cardiovascular disease) Agoraphobia with panic disorder Glaucoma Post traumatic stress disorder Bipolar disorder Depression Anxiety Restless leg syndrome Hypertension Hyperlipidemia Chronic obstructive pulmonary disease "MILD" Surgical History History of lumpectomy of left breast S/P fine needle aspiration History of breast biopsy BREAST CANCER October History of tooth extraction History of tonsillectomy History of adenoidectomy History of cataract surgery RT/LEFT EYE Family History Grandmother (Paternal) , age 75 of metatasis of cancer No problems noted. Grandfather (Paternal) , of black lung in his sixties No problems noted. Mother , unknown history No problems noted. Father , of metastasis to brain from kidney cancer age 72 No problems noted. Sister Age: 70 Breast cancer Social History Smoking Status: Current every day smoker Tobacco Type: Cigarettes Cigarettes Per Day: 20 CIG DAILY; Second Hand Exposure: Yes; Do You Dip or Chew Tobacco: No; Hx Alcohol Use: No Hx Substance Use: No Preferred Language: Kiswahili Communication Ability: Effective Communication Ability Comment: intubated Order Fulfillment Specialist Required: No Beliefs That Will Affect Care: None Current Living Situation: Spouse Feels Safe at Home: Yes Assistive Devices: None Allergies Allergies Allergy/AdvReac Type Severity Reaction Status Date / Time lisinopril Allergy Severe Angioedema Verified 01/13/25 22:47 pseudoephedrine AdvReac Intermediate Palpitation Verified 01/13/25 22:47 s sertraline [From Zoloft] AdvReac Intermediate "SKIN Verified 01/13/25 22:47 CRAWLING" simvastatin AdvReac Intermediate MYALGIA Verified 01/13/25 22:47 Home Meds Home Medications Medication Instructions Recorded Confirmed bimatoprost 0.01 % eye drops 1 drp ophthalmic (eye) DAILY 09/17/20 01/13/25 (Berthaigan) prednisone 5 mg tablet 5 mg PO DAILY 09/22/21 01/13/25 albuterol sulfate 90 mcg/actuation 2 puff inhalation Q6H PRN 09/21/23 01/13/25 aerosol inhaler Shortness Of Breath Or Wheezing Results & Data (ED) Vital Signs Vital Signs - 24 hr 01/13/25 20:52 01/13/25 20:53 01/13/25 21:16 Temperature 36.8 C Temperature Source Temporal Artery Scan Pulse Rate 134 H 124 H Pulse Rate [Finger] 106 H Respiratory Rate 20 20 Respiratory Effort / Characteristics Non-Labored Spontaneous Respiratory Depth Normal Respiratory Pattern Regular Blood Pressure 135/75 Blood Pressure [Right Arm] 109/59 L Blood Pressure Mean 95 Blood Pressure Mean [Right Arm] 75 Pulse Oximetry 95 94 Oxygen Delivery Method BiPAP Room Air Sepsis Recent Fever Within 48 Hours Yes Sepsis New/Unexplained Change in Mental Status No Sepsis Action Taken by Nursing No Action Required 01/13/25 21:29 01/13/25 22:35 Temperature Temperature Source Pulse Rate Pulse Rate [Finger] 101 H Respiratory Rate 33 H Respiratory Effort / Characteristics Respiratory Depth Respiratory Pattern Blood Pressure Blood Pressure [Right Arm] 149/71 H Blood Pressure Mean Blood Pressure Mean [Right Arm] 97 Pulse Oximetry 91 Oxygen Delivery Method Room Air Room Air Sepsis Recent Fever Within 48 Hours Sepsis New/Unexplained Change in Mental Status Sepsis Action Taken by Nursing Laboratory Data 01/13/25 21:18 01/13/25 21:18 Lab Results 01/13/25 01/13/25 Range/Units 21:18 Unknown WBC 15.61 H (4.8-10.8) K/ul RBC 4.24 (4.20-5.40) M/uL Hgb 13.3 (12.0-16.0) g/dl Hct 39.5 (37.0-47.0) % MCV 93.2 (80.0-100.0) fL MCH 31.4 (25.0-34.0) pg MCHC 33.7 (32.0-36.0) g/dL RDW Std Deviation 49.1 H (36.4-46.3) fL RDW Coeff of Rickey 14.3 (11.5-14.5) % Plt Count 251 (130-400) K/uL MPV 9.6 (9.4-12.4) fL Immature Gran % (Auto) 0.5 % Neut % (Auto) 87.1 % Lymph % (Auto) 9.2 % [place] % (Auto) 2.8 % Eos % (Auto) 0.1 % Baso % (Auto) 0.3 % Neut # (Auto) 13.60 H (1.40-6.50) K/uL Lymph # (Auto) 1.44 (1.20-3.40) K/uL [place] # (Auto) 0.43 (0.11-0.59) K/uL Eos # (Auto) 0.02 (0.00-0.50) K/uL Baso # (Auto) 0.04 (0.00-0.20) K/uL Immature Gran # (Auto) 0.08 (0.01-0.20) K/uL PT 10.6 (9.0-12.0) Seconds INR 1.0 (0.9-1.1) Sodium 132 L (136-145) mmol/L Potassium 3.8 (3.5-5.1) mmol/L Chloride 97 L (98-107) mmol/L Carbon Dioxide 23 (21-32) mmol/L Anion Gap 12 H (3-11) BUN 24 H (6-23) mg/dl Creatinine 0.90 (0.6-1.2) mg/dl Est Cr Clr Drug Dosing Not Reportable eGFR 68.35 BUN/Creatinine Ratio 26.7 H (10-20) Glucose 273 H (70-99(Fasting)) mg/dl Calcium 9.3 (8.6-10.3) mg/dl Magnesium 1.7 (1.7-2.4) mg/dl Total Bilirubin 0.9 (0.2-1.0) mg/dl AST 15 (13-39) U/L ALT 14 (7-52) U/L Alkaline Phosphatase 128 H (34-104) U/L Troponin I High Sens 23.8 H (0-14) pg/ml Total Protein 7.2 (6.0-8.3) gm/dl Albumin 3.3 L (3.4-5.0) gm/dl Globulin 3.9 (2.5-4.0) gm/dl Albumin/Globulin Ratio 0.8 L (0.9-2) Adenovirus (PCR) Not Detected (NotDetected) B. pertussis DNA (PCR) Not Detected (NotDetected) B.parapertussis DNA PCR Not Detected (NotDetected) C. pneumoniae DNA (PCR) Not Detected (NotDetected) Coronavirus OC43 (PCR) Not Detected (NotDetected) Coronavirus HKU1 (PCR) Not Detected (NotDetected) Coronavirus 229E (PCR) Not Detected (NotDetected) SARS-CoV-2 (PCR) Not Detected (NotDetected) Coronavirus NL63 (PCR) Not Detected (NotDetected) Human Metapneumovir PCR Not Detected (NotDetected) Influenza Type A (PCR) Not Detected (NotDetected) Influenza Type B (PCR) Not Detected (NotDetected) M. pneumoniae (PCR) Not Detected (NotDetected) Parainfluenza 1 (PCR) Not Detected (NotDetected) Parainfluenza 2 (PCR) Not Detected (NotDetected) Parainfluenza 3 (PCR) Not Detected (NotDetected) Parainfluenza 4 (PCR) Not Detected (NotDetected) RSV (PCR) Not Detected (NotDetected) Entero/Rhino (PCR) Not Detected (NotDetected) Administered Medications Discontinued Medications Albuterol (Albut/Ipratrop 3mg/0.5mg Neb 3 Ml Vial) 3 ml NEB NOW STA; Protocol Stop: 01/13/25 21:30 Last Admin: 01/13/25 21:33 Dose: 3 ml Documented By: RUBÉN Sodium Chloride (Nss) 500 mls @ 999 mls/hr IV .Q31M ONE Stop: 01/13/25 21:59 Last Infusion: 01/13/25 22:05 Dose: Infused Documented By: Admin: 01/13/25 21:34 Dose: 999 mls/hr Documented By: RUBÉN Ioversol (Optiray 320 125ml) 118 ml IV ONCE ONE Stop: 01/13/25 22:17 Last Admin: 01/13/25 22:16 Dose: 118 ml Documented By: GES Imaging Data Radiologist's Impression: Chest CTA 01/13/25 21:29 Exam(s): CTA CHEST IV Amt: 118 cc opti 320 EXAM: CT Angiography Chest With Intravenous Contrast CLINICAL HISTORY: Reason for exam: PE. TECHNIQUE: Axial computed tomographic angiography images of the chest with intravenous contrast. CTDI is 11.87 mGy and DLP is 249.97 mGy-cm. Automated exposure control was utilized for the study. A dose lowering technique was utilized adhering to the principles of ALARA. MIP reconstructed images were created and reviewed. COMPARISON: 10/11/2023 FINDINGS: Limitations: Exam limited secondary to patient respiratory motion. Pulmonary arteries: Unremarkable. No large central pulmonary embolus. Aorta: No acute findings. No thoracic aortic aneurysm. Lungs: Branching nodular opacities within the right upper lobe and to a lesser extent lingula and right middle lobe. Pleural space: Unremarkable. No significant effusion. No pneumothorax. Heart: Unremarkable. No cardiomegaly. No significant pericardial effusion. No evidence of RV dysfunction. Bones/joints: No acute fracture. No dislocation. Soft tissues: Unremarkable. Lymph nodes: Unremarkable. No enlarged lymph nodes. IMPRESSION: Exam limited secondary to patient respiratory motion No large central pulmonary embolus Multifocal pneumonia involving the lingula, right upper and middle lobes. Electronically signed by: Caleb Chen MD 01/13/25 22:36 PM Discharge Plan Visit Data Chief Complaint: Shortness of Breath/Dyspnea Stated Complaint: SOB ED Provider: Nelda Ames Discharge Problem: Acute dyspnea, Multifocal pneumonia, Leukocytosis, Elevated troponin Condition: Fair Forms Stand Alone Forms: [facility] [employer] Prescriptions Prescriptions: No Action Lumigan 0.01 % drops 1 drp ophthalmic (eye) DAILY prednisone 5 mg tablet 5 mg PO DAILY albuterol sulfate 90 mcg/actuation HFA aerosol inhaler 2 puff inhalation Q6H PRN (Reason: Shortness Of Breath Or Wheezing) Referrals Referrals: Jarad Peña MD [Primary Care Provider] -
[2025-01-13 21:49] LABS: Hematocrit (blood only) 39.5 % (37.0-47.0); Hemoglobin 13.3 g/dl (12.0-16.0); Immature Granulocytes # (auto) 0.08 K/uL (0.01-0.20); Immature Granulocytes % (auto) 0.5 %; Mean Corpuscular Hemoglobin 31.4 pg (25.0-34.0); Mean Corpuscular Volume 93.2 fL (80.0-100.0); Platelet Count 251 K/uL (130-400); RDW Standard Deviation 49.1 fL (36.4-46.3); Red Blood Count 4.24 M/uL (4.20-5.40); White Blood Count 15.61 K/ul (4.8-10.8)
[2025-01-13 21:59] LABS: Alanine Aminotransferase 14 U/L (7-52); Albumin Globulin Ratio 0.8 (0.9-2); Alkaline Phosphatase 128 U/L (34-104); Anion Gap 12 (3-11); Bilirubin,Total 0.9 mg/dl (0.2-1.0); Blood Urea Nitrogen 24 mg/dl (6-23); Calcium 9.3 mg/dl (8.6-10.3); Carbon Dioxide 23 mmol/L (21-32); Chloride 97 mmol/L (98-107); Globulin 3.9 gm/dl (2.5-4.0); Glucose 273 mg/dl (70-99(Fasting)); Magnesium 1.7 mg/dl (1.7-2.4); Potassium 3.8 mmol/L (3.5-5.1); Sodium 132 mmol/L (136-145); Total Protein 7.2 gm/dl (6.0-8.3)
[2025-01-13 22:11] LABS: INR 1.0 (0.9-1.1); Prothrombin Time 10.6 Seconds (9.0-12.0)
[2025-01-13] MEDS: OPTIRAY 320 125ml IV ONE (22:16)
--- NOTE | 2025-01-13 22:37 | CT Scan Report ---
Exam(s): CTA CHEST IV Amt: 118 cc opti 320 EXAM: CT Angiography Chest With Intravenous Contrast CLINICAL HISTORY: Reason for exam: PE. TECHNIQUE: Axial computed tomographic angiography images of the chest with intravenous contrast. CTDI is 11.87 mGy and DLP is 249.97 mGy-cm. Automated exposure control was utilized for the study. A dose lowering technique was utilized adhering to the principles of ALARA. MIP reconstructed images were created and reviewed. COMPARISON: 10/11/2023 FINDINGS: Limitations: Exam limited secondary to patient respiratory motion. Pulmonary arteries: Unremarkable. No large central pulmonary embolus. Aorta: No acute findings. No thoracic aortic aneurysm. Lungs: Branching nodular opacities within the right upper lobe and to a lesser extent lingula and right middle lobe. Pleural space: Unremarkable. No significant effusion. No pneumothorax. Heart: Unremarkable. No cardiomegaly. No significant pericardial effusion. No evidence of RV dysfunction. Bones/joints: No acute fracture. No dislocation. Soft tissues: Unremarkable. Lymph nodes: Unremarkable. No enlarged lymph nodes. IMPRESSION: Exam limited secondary to patient respiratory motion No large central pulmonary embolus Multifocal pneumonia involving the lingula, right upper and middle lobes. Electronically signed by: Caleb Chen MD 01/13/25 22:36 PM
[2025-01-13 22:38] LABS: Chlamydia pneumoniae PCR Not Detected (NotDetected); Coronavirus 229E PCR Not Detected (NotDetected); Coronavirus CoV-2 (COVID19)PCR Not Detected (NotDetected); Coronavirus HKU1 PCR Not Detected (NotDetected); Coronavirus NL63 PCR Not Detected (NotDetected); Coronavirus OC43PCR Not Detected (NotDetected); Human Metapneumovirus PCR Not Detected (NotDetected); Parainfluenza Virus 1 PCR Not Detected (NotDetected); Parainfluenza Virus 2 PCR Not Detected (NotDetected); Parainfluenza Virus 3 PCR Not Detected (NotDetected); Parainfluenza Virus 4 PCR Not Detected (NotDetected); Respiratory Syncytial VirusPCR Not Detected (NotDetected); Rhinovirus/Enterovirus PCR Not Detected (NotDetected)
--- NOTE | 2025-01-14 | History & Physical Report ---
Date of Service January 13, 2025 Assessment & Plan (1) Multifocal pneumonia: Plan: 69-year-old female with past med history significant for mixed hyperlipidemia, prediabetes, allergic rhinitis, hypertension, vitamin D deficiency, polymyalgia rheumatica, senile osteoporosis, primary open-angle glaucoma bilateral mild stage, alcoholism, anxiety, PTSD, bipolar 1 disorder, angioedema due to MARTY inhibitors, medical marijuana use, history of breast cancer, ongoing tobacco use presents with shortness of breath and cough and found to have multifocal pneumonia. Patient states on December 29, 2024 she went to urgent care for cough and runny nose and was prescribed Augmentin for 10-day course and prednisone taper for sinobronchitis. She felt better on the medication. But once medications are done she was again started feeling worse. Last 3 days she could not get from the bed. Coughing yellowish phlegm. Feeling short of breath. Today she was tachycardic and very short of breath and came to the ER. She says after breathing treatment shortness of breath improved and tachycardia improved. During her visit to urgent care she had fever but since then no fevers. She has some chest discomfort and states it is more with coughing. Denies any headache. Has a runny nose. No sore throat. Appetite is down. No nausea. No abdominal pain. Was having some diarrhea with antibiotics. Micturating okay. Hemodynamics are okay.She says she is supposed to be on amlodipine for blood pressure but she is not taking currently and she says she checks her blood pressure and it was running okay at home as per patient Multifocal pneumonia Came with ongoing shortness of breath and cough Recently treated for sinobronchitis for 10 days of Augmentin and steroid taper CAT scan today showing multifocal pneumonia Received Rocephin and azithromycin in the ER which will be continued Will follow the cultures Will monitor the response Possible COPD exacerbation Ongoing tobacco abuse Will do short course of steroids Nebs [id number] and as needed History of polymyalgia rheumatica On prednisone 5 mg daily Currently placed on Solu-Medrol 40 mg daily and holding p.o. prednisone Prediabetes Follow HbA1c levels Hypertension Currently not on any meds Will monitor Tobacco abuse Nicotine patch Counseling Alcoholism She is currently drinking only 2-3 shots of bourbons daily Says she will not go through withdrawal and denies any withdrawal medications Will place on thiamine, folic acid and multivitamins and Ativan as needed close monitor Mildly elevated troponin Mostly demand ischemia Will follow serial enzymes DVT prophylaxis Lovenox Disposition Med/telemetry Full code. History of Present Illness Chief Complaint: Multifocal pneumonia Primary Care Provider: Jarad Peña MD 69-year-old female with past med history significant for mixed hyperlipidemia, prediabetes, allergic rhinitis, hypertension, vitamin D deficiency, polymyalgia rheumatica, senile osteoporosis, primary open-angle glaucoma bilateral mild stage, alcoholism, anxiety, PTSD, bipolar 1 disorder, angioedema due to MARTY inhibitors, medical marijuana use, history of breast cancer, ongoing tobacco use presents with shortness of breath and cough and found to have multifocal pneumonia. Patient states on December 29, 2024 she went to urgent care for cough and runny nose and was prescribed Augmentin for 10-day course and prednisone taper for sinobronchitis. She felt better on the medication. But once medica tions are done she was again started feeling worse. Last 3 days she could not get from the bed. Coughing yellowish phlegm. Feeling short of breath. Today she was tachycardic and very short of breath and came to the ER. She says after breathing treatment shortness of breath improved and tachycardia improved. During her visit to urgent care she had fever but since then no fevers. She has some chest discomfort and states it is more with coughing. Denies any headache. Has a runny nose. No sore throat. Appetite is down. No nausea. No abdominal pain. Was having some diarrhea with antibiotics. Micturating okay. Hemodynamics are okay.She says she is supposed to be on amlodipine for blood pressure but she is not taking currently and she says she checks her blood pressure and it was running okay at home as per patient Past medical history. As mentioned above Past surgical history. Left breast lesion excision. Cataract surgery. Breast cyst drainage. Social history. Smoking 1 pack a day for last 50 years. Currently drinking 2 to 3 glasses of bourbon daily. Medical marijuana as per [employer] Family history. Sister had breast cancer. Sister had autoimmune cirrhosis. Si ster had heart failure. Father had kidney cancer. Stroke. Brother had lupus. Allergies Allergy/AdvReac Type Severity Reaction Status Date / Time lisinopril Allergy Severe Angioedema Verified 01/13/25 22:47 pseudoephedrine AdvReac Intermediate Palpitation Verified 01/13/25 22:47 s sertraline [From Zoloft] AdvReac Intermediate "SKIN Verified 01/13/25 22:47 CRAWLING" simvastatin AdvReac Intermediate MYALGIA Verified 01/13/25 22:47 Home Medications Medication Instructions Recorded Confirmed Type bimatoprost 0.01 % eye drops 1 drp ophthalmic (eye) DAILY 09/17/20 01/13/25 History ([facility]) prednisone 5 mg tablet 5 mg PO DAILY 09/22/21 01/13/25 History albuterol sulfate 90 mcg/actuation 2 puff inhalation Q6H PRN 09/21/23 01/13/25 History aerosol inhaler Shortness Of Breath Or Wheezing Past Med/Surg History Problem List (Updated 01/13/25 @ 23:10 by Nelda Ames MD) Elevated troponin (Acute) Leukocytosis (Acute) Multifocal pneumonia (Acute) Acute dyspnea (Acute) Weakness acquired in ICU Reversible airway obstruction At high risk for airway occlusion Difficult airway for intubation Admitted to intensive care unit Angioedema (Acute) Malignant neoplasm of upper-outer quadrant of left breast in female, estrogen receptor positive (Chronic 10/08/18) Hypercholesteremia (Chronic) Hypertension (Chronic) Alcohol abuse (Acute) Alcohol abuse (Acute) Alcohol abuse (Acute) Depression (Acute) Overdose (Acute) Medical History (Updated 01/13/25 @ 23:10 by Nelda Ames MD) Allergic angioedema Osteopenia Tobacco abuse ASCVD (arteriosclerotic cardiovascular disease) Agoraphobia with panic disorder Glaucoma Post traumatic stress disorder Bipolar disorder Depression Anxiety Restless leg syndrome Hypertension Hyperlipidemia Chronic obstructive pulmonary disease "MILD" Surgical History History of lumpectomy of left breast S/P fine needle aspiration History of breast biopsy BREAST CANCER October History of tooth extraction History of tonsillectomy History of adenoidectomy History of cataract surgery RT/LEFT EYE Family History Grandmother (Paternal) , age 75 of metatasis of cancer No problems noted. Grandfather (Paternal) , of black lung in his sixties No problems noted. Mother , unknown history No problems noted. Father , of metastasis to brain from kidney cancer age 72 No problems noted. Sister Age: 70 Breast cancer Social History Smoking Status: Current every day smoker Tobacco Type: Cigarettes Cigarettes Per Day: 20 CIG DAILY; Second Hand Exposure: Yes; Do You Dip or Chew Tobacco: No; Hx Alcohol Use: No Hx Substance Use: No Preferred Language: Azerbaijani Communication Ability: Effective Communication Ability Comment: intubated [employer] Required: No Beliefs That Will Affect Care: None Current Living Situation: Spouse Other Information That Helps Us Care for You: No Feels Safe at Home: Yes Safety Concerns: Feels Safe At This Time Assistive Devices: None Review of Systems Review of Systems: All systems reviewed & are unremarkable except as noted in HPI & below Physical Exam Physical Exam: General- Not in distress Head- atraumatic Eyes- PERRL. ENT- oropharynx clear Neck- supple, no JVD. Lungs- clear to auscultation mild bilateral rhonchi Heart- regular rhythm; no murmur, no gallop. Abdomen- normal bowel sounds, soft, nontender, no distension Extremities- no pretibial edema, no erythema seen Neuro- alert, oriented PERRL, no facial palsy; no dysarthria; moves extremities Results & Data Results & Data Vital Signs (Past 12 Hours) Vital Signs Temp Pulse Pulse Resp BP BP Pulse Ox 01/13/25 23:00 88 L 01/13/25 22:35 101 H 33 H 149/71 H 91 01/13/25 21:29 01/13/25 21:16 124 H 01/13/25 20:53 36.8 C 134 H 20 135/75 94 01/13/25 20:52 106 H 20 109/59 L 95 O2 Del Method O2 Flow Rate 01/13/25 23:00 Nasal Cannula 0 01/13/25 22:35 Room Air 01/13/25 21:29 Room Air 01/13/25 21:16 01/13/25 20:53 Room Air 01/13/25 20:52 BiPAP Diagnostic Findings Laboratory Results WBC 15.61 K/ul (4.8-10.8) H 01/13/25 21:18 RBC 4.24 M/uL (4.20-5.40) 01/13/25 21:18 Hgb 13.3 g/dl (12.0-16.0) 01/13/25 21:18 Hct 39.5 % (37.0-47.0) 01/13/25 21:18 MCV 93.2 fL (80.0-100.0) 01/13/25 21:18 MCH 31.4 pg (25.0-34.0) 01/13/25 21:18 MCHC 33.7 g/dL (32.0-36.0) 01/13/25 21:18 RDW Std Deviation 49.1 fL (36.4-46.3) H 01/13/25 21:18 RDW Coeff of Rickey 14.3 % (11.5-14.5) 01/13/25 21:18 Plt Count 251 K/uL (130-400) 01/13/25 21:18 MPV 9.6 fL (9.4-12.4) 01/13/25 21:18 Immature Gran % (Auto) 0.5 % 01/13/25 21:18 Neut % (Auto) 87.1 % 01/13/25 21:18 Lymph % (Auto) 9.2 % 01/13/25 21:18 Owen % (Auto) 2.8 % 01/13/25 21:18 Eos % (Auto) 0.1 % 01/13/25 21:18 Baso % (Auto) 0.3 % 01/13/25 21:18 Neut # (Auto) 13.60 K/uL (1.40-6.50) H 01/13/25 21:18 Lymph # (Auto) 1.44 K/uL (1.20-3.40) 01/13/25 21:18 Owen # (Auto) 0.43 K/uL (0.11-0.59) 01/13/25 21:18 Eos # (Auto) 0.02 K/uL (0.00-0.50) 01/13/25 21:18 Baso # (Auto) 0.04 K/uL (0.00-0.20) 01/13/25 21:18 Immature Gran # (Auto) 0.08 K/uL (0.01-0.20) 01/13/25 21:18 PT 10.6 Seconds (9.0-12.0) 01/13/25 21:18 INR 1.0 (0.9-1.1) 01/13/25 21:18 Sodium 132 mmol/L (136-145) L 01/13/25 21:18 Potassium 3.8 mmol/L (3.5-5.1) 01/13/25 21:18 Chloride 97 mmol/L (98-107) L 01/13/25 21:18 Carbon Dioxide 23 mmol/L (21-32) 01/13/25 21:18 Anion Gap 12 (3-11) H 01/13/25 21:18 BUN 24 mg/dl (6-23) H 01/13/25 21:18 Creatinine 0.90 mg/dl (0.6-1.2) 01/13/25 21:18 Est Cr Clr Drug Dosing Not Reportable 01/13/25 21:18 eGFR 68.35 01/13/25 21:18 BUN/Creatinine Ratio 26.7 (10-20) H 01/13/25 21:18 Glucose 273 mg/dl (70-99(Fasting)) H 01/13/25 21:18 Calcium 9.3 mg/dl (8.6-10.3) 01/13/25 21:18 Magnesium 1.7 mg/dl (1.7-2.4) 01/13/25 21:18 Total Bilirubin 0.9 mg/dl (0.2-1.0) 01/13/25 21:18 AST 15 U/L (13-39) 01/13/25 21:18 ALT 14 U/L (7-52) 01/13/25 21:18 Alkaline Phosphatase 128 U/L (34-104) H 01/13/25 21:18 Troponin I High Sens 23.8 pg/ml (0-14) H 01/13/25 21:18 Total Protein 7.2 gm/dl (6.0-8.3) 01/13/25 21:18 Albumin 3.3 gm/dl (3.4-5.0) L 01/13/25 21:18 Globulin 3.9 gm/dl (2.5-4.0) 01/13/25 21:18 Albumin/Globulin Ratio 0.8 (0.9-2) L 01/13/25 21:18 Adenovirus (PCR) Not Detected (NotDetected) 01/13/25 Unknown B. pertussis DNA (PCR) Not Detected (NotDetected) 01/13/25 Unknown B.parapertussis DNA PCR Not Detected (NotDetected) 01/13/25 Unknown C. pneumoniae DNA (PCR) Not Detected (NotDetected) 01/13/25 Unknown Coronavirus OC43 (PCR) Not Detected (NotDetected) 01/13/25 Unknown Coronavirus HKU1 (PCR) Not Detected (NotDetected) 01/13/25 Unknown Coronavirus 229E (PCR) Not Detected (NotDetected) 01/13/25 Unknown SARS-CoV-2 (PCR) Not Detected (NotDetected) 01/13/25 Unknown Coronavirus NL63 (PCR) Not Detected (NotDetected) 01/13/25 Unknown Human Metapneumovir PCR Not Detected (NotDetected) 01/13/25 Unknown Influenza Type A (PCR) Not Detected (NotDetected) 01/13/25 Unknown Influenza Type B (PCR) Not Detected (NotDetected) 01/13/25 Unknown M. pneumoniae (PCR) Not Detected (NotDetected) 01/13/25 Unknown Parainfluenza 1 (PCR) Not Detected (NotDetected) 01/13/25 Unknown Parainfluenza 2 (PCR) Not Detected (NotDetected) 01/13/25 Unknown Parainfluenza 3 (PCR) Not Detected (NotDetected) 01/13/25 Unknown Parainfluenza 4 (PCR) Not Detected (NotDetected) 01/13/25 Unknown RSV (PCR) Not Detected (NotDetected) 01/13/25 Unknown Entero/Rhino (PCR) Not Detected (NotDetected) 01/13/25 Unknown Impressions Chest CTA 01/13/25 21:29 Exam(s): CTA CHEST IV Amt: 118 cc opti 320 EXAM: CT Angiography Chest With Intravenous Contrast CLINICAL HISTORY: Reason for exam: PE. TECHNIQUE: Axial computed tomographic angiography images of the chest with intravenous contrast. CTDI is 11.87 mGy and DLP is 249.97 mGy-cm. Automated exposure control was utilized for the study. A dose lowering technique was utilized adhering to the principles of ALARA. MIP reconstructed images were created and reviewed. COMPARISON: 10/11/2023 FINDINGS: Limitations: Exam limited secondary to patient respiratory motion. Pulmonary arteries: Unremarkable. No large central pulmonary embolus. Aorta: No acute findings. No thoracic aortic aneurysm. Lungs: Branching nodular opacities within the right upper lobe and to a lesser extent lingula and right middle lobe. Pleural space: Unremarkable. No significant effusion. No pneumothorax. Heart: Unremarkable. No cardiomegaly. No significant pericardial effusion. No evidence of RV dysfunction. Bones/joints: No acute fracture. No dislocation. Soft tissues: Unremarkable. Lymph nodes: Unremarkable. No enlarged lymph nodes. IMPRESSION: Exam limited secondary to patient respiratory motion No large central pulmonary embolus Multifocal pneumonia involving the lingula, right upper and middle lobes. Electronically signed by: Caleb Chen MD 01/13/25 22:36 PM ECG Additional Comments: ECG. Sinus tachycardia rate of 130. Nonspecific ST abnormality. QTc 409 Code Status & VTE Plan VTE Prophylaxis Plan VTE Prophylaxis will be ordered: Yes
[2025-01-14] MEDS: cefTRIAXone SODIUM 2,000 MG/50 ML BAG IV STA (00:18)
[2025-01-14] MEDS: AZITHROMYCIN 250 MG TAB PO ONE (00:18)
[2025-01-14] MEDS: NICOTINE 21 MG/24 HR TDSY TD STA (00:18)
[2025-01-14] MEDS: THIAMINE HCL 100 MG in SYRINGE 9 ML IV STA (00:18)
[2025-01-14] MEDS ORDERED: NITROGLYCERIN SL 0.4 MG/TAB TAB SL PRN (00:44)
[2025-01-14] MEDS ORDERED: LEVALBUTEROL 1.25 MG/3 ML NEB NEB PRN (00:44)
[2025-01-14] MEDS ORDERED: POLYETHYLENE (MIRALAX) 17 GM PACK PO PRN (00:44)
[2025-01-14] MEDS ORDERED: ACETAMINOPHEN 325 MG TAB PO PRN (00:44)
[2025-01-14] MEDS ORDERED: ALBUTEROL HFA 8 GM INHALER INH PRN (00:44)
[2025-01-14 01:17] LABS: Appearance Urine Clear (Clear); Bacteria Urine Automated None Seen (None Seen); Cast Urine Automated 0-2 /lpf (0-2); Glucose Urine UA 3+ (Negative); RBC Urine Automated 0-2 /hpf (0-2)
--- NOTE | 2025-01-14 01:48 | XRay Report ---
Exam(s): XR CXR 1 VIEW EXAM: XR Chest, 1 View CLINICAL HISTORY: Reason for exam: Dyspnea. TECHNIQUE: Frontal view of the chest. COMPARISON: No relevant prior studies available. FINDINGS: Lungs: Unremarkable. No consolidation. Pleural space: Unremarkable. No pneumothorax. Heart: Unremarkable. No cardiomegaly. Mediastinum: Unremarkable. Normal mediastinal contour. Bones/joints: Unremarkable. No acute fracture. IMPRESSION: Normal chest x-ray. Electronically signed by: Caleb Chen MD 01/14/25 01:45 AM
[2025-01-14 03:02] LABS: Hematocrit (blood only) 36.6 % (37.0-47.0); Hemoglobin 12.3 g/dl (12.0-16.0); Mean Corpuscular Hemoglobin 31.0 pg (25.0-34.0); Mean Corpuscular Volume 92.2 fL (80.0-100.0); Platelet Count 216 K/uL (130-400); RDW Standard Deviation 47.8 fL (36.4-46.3); Red Blood Count 3.97 M/uL (4.20-5.40); White Blood Count 13.30 K/ul (4.8-10.8)
[2025-01-14 03:21] LABS: Anion Gap 10.0 (3-11); Blood Urea Nitrogen 18.0 mg/dl (6-23); Calcium 8.5 mg/dl (8.6-10.3); Carbon Dioxide 22.0 mmol/L (21-32); Chloride 99.0 mmol/L (98-107); Creatinine Clr Calc Pharmacy 51.5 ml/min; Glucose 251.0 mg/dl (70-99(Fasting)); Magnesium 1.6 mg/dl (1.7-2.4); Potassium 3.9 mmol/L (3.5-5.1); Sodium 131.0 mmol/L (136-145)
[2025-01-14 03:37] LABS: Immature Granulocytes # (auto) 0.07 K/uL (0.01-0.20); Immature Granulocytes % (auto) 0.5 %
[2025-01-14] MEDS: SODIUM CHLORIDE 0.9% 500 ML IV STA (06:03)
[2025-01-14] MEDS: LEVALBUTEROL 1.25 MG/3 ML NEB NEB SCH (06:50)
[2025-01-14] MEDS: MAGNESIUM OXIDE 400 MG TAB PO SCH (08:59)
[2025-01-14] MEDS: CEROVITE ADV FORMULA TAB PO SCH (08:59)
[2025-01-14] MEDS: ENOXAPARIN INJ 40 MG/0.4 ML SYR SQ SCH (09:00)
[2025-01-14] MEDS: FOLIC ACID 1 MG TAB PO SCH (09:00)
[2025-01-14] MEDS: REMOVE NICODERM PATCH SCH (09:00)
[2025-01-14] MEDS: THIAMINE HCL 100 MG TAB PO SCH (09:00)
[2025-01-14] MEDS: NICOTINE 21 MG/24 HR TDSY TD SCH (09:00)
[2025-01-14] MEDS: SODIUM CHLORIDE 0.9% 1,000 ML IV SCH (09:00)
[2025-01-14 09:21] VITALS: BP 116/64; PULSE 88; RESP 20; O2SAT 96
--- NOTE | 2025-01-14 15:04 | Discharge Summary ---
Discharge Summary Date of Service January 14, 2025 Principal Dx & Hospital Course #1 = Principal Diagnosis (1) Multifocal pneumonia: (2) COPD with exacerbation: (3) Demand ischemia: (4) Tobacco abuse: (5) Bipolar disorder: Plan Patient 69-year-old female presented emergency room with progressive shortness of breath and cough over multiple days. Patient had some evidence of demand ischemia and an elevated lactate. Patient was admitted for IV antibiotics and monitoring. Patient was admitted to the hospital, however she remained in the emergency department as a hold. She only transiently needed some oxygen supplementation. Evaluated the patient in the afternoon of 01/14/2025. She was sitting in a chair fully dressed feeling much better and requested to go home. She was fairly upset that she had not yet been moved to a room. She reports feeling significantly improved. Earlier communication with respiratory therapy indicated that her lungs were clear and did not need any scheduled nebulizer treatments. Overall laboratory studies have improved. Believe she can be transitioned to oral antibiotics and plan for discharge home. At this point seems as though she has responded. Her lungs were clear. She is not requiring oxygen. She be transition to oral antibiotics and discharged home to follow-up with her outpatient PCP Notes For Next Care Provider May need additional follow-up PFT testing and potentially daily treatment for COPD Continue to encourage her to stop smoking Medication Changes From Visit Emily for pneumonia Prednisone for mild COPD exacerbation Admission HPI Per Admitting Provider 69-year-old female with past med history significant for mixed hyperlipidemia, prediabetes, allergic rhinitis, hypertension, vitamin D deficiency, polymyalgia rheumatica, senile osteoporosis, primary open-angle glaucoma bilateral mild stage, alcoholism, anxiety, PTSD, bipolar 1 disorder, angioedema due to MARTY inhibitors, medical marijuana use, history of breast cancer, ongoing tobacco use presents with shortness of breath and cough and found to have multifocal pneumonia. Patient states on December 29, 2024 she went to urgent care for cough and runny nose and was prescribed Augmentin for 10-day course and prednisone taper for sinobronchitis. She felt better on the medication. But once medications are done she was again started feeling worse. Last 3 days she could not get from the bed. Coughing yellowish phlegm. Feeling short of breath. Today she was tachycardic and very short of breath and came to the ER. She says after breathing treatment shortness of breath improved and tachycardia improved. During her visit to urgent care she had fever but since then no fevers. She has some chest discomfort and states it is more with coughing. Denies any headache. Has a runny nose. No sore throat. Appetite is down. No nausea. No abdominal pain. Was having some diarrhea with antibiotics. Micturating okay. Hemodynamics are okay.She says she is supposed to be on amlodipine for blood pressure but she is not taking currently and she says she checks her blood pressure and it was running okay at home as per patient Past medical history. As mentioned above Past surgical history. Left breast lesion excision. Cataract surgery. Breast cyst drainage. Social history. Smoking 1 pack a day for last 50 years. Currently drinking 2 to 3 glasses of bourbon daily. Medical marijuana as per [employer]. Family history. Sister had breast cancer. Sister had autoimmune cirrhosis. Sister had heart failure. Father had kidney cancer. Stroke. Brother had lupus. Admission Exam Per Admitting Provider See H&P Discharge Exam Constitutional: Alert, nontoxic, no acute distress HEENT: Mucous membranes moist. Lungs: Decreased breath sounds, prolonged expiratory phase, no wheezes, no rales, no rhonchi CV: S1-S2, regular Abdomen: Soft, nontender, nondistended Extremities: No significant edema Neuro: No focal deficits Psych: Cooperative, normal mood Updated Medication List Medication Instructions Recorded Confirmed Type bimatoprost 0.01 % eye drops 1 drp ophthalmic (eye) DAILY 09/17/20 01/13/25 History ([facility]) prednisone 5 mg tablet 5 mg PO DAILY 09/22/21 01/13/25 History albuterol sulfate 90 mcg/actuation 2 puff inhalation Q4H PRN 01/14/25 Rx aerosol inhaler Shortness Of Breath Or Wheezing #8.5 grams benzonatate 200 mg capsule 200 mg PO TID PRN cough #30 caps 01/14/25 Rx levofloxacin 500 mg tablet 500 mg PO DAILY 5 days #5 tabs 01/14/25 Rx nicotine 21 mg/24 hr daily 1 patch transdermal DAILY #14 ea 01/14/25 Rx transdermal patch (Nicoderm CQ) prednisone 20 mg tablet 40 mg (2 x 20 mg) PO DAILY 3 days 01/14/25 Rx #6 tabs Hospital Stay Data Consultations 01/13/25 23:02 ED Decision to Admit Stat Diagnostic Imagining Performed 01/13/25 21:29 CT for pulmonary embolism PE [CT angio chest PE protocol] Stat Reviewed imaging, laboratory and diagnostic studies. Pertinent findings as below. WBCs 13.0, improved Hemoglobin 12.3 Sodium 131 Creatinine 0.72 Lactate improved to 2.3 Magnesium 1.6 replaced prior to discharge Procalcitonin 1.1 Respiratory viral panel negative CTA of the chest showed no large central pulmonary embolus, findings consistent with multilobar pneumonia in the lingula right upper and middle lobes Pending Results Patient Have Any Pending Studies at Discharge: Yes Discharge Instructions Given to Patient (Per Discharging Provider) Complete course of antibiotics Encourage you to stop smoking Total Time Total Time Spent Total Time Spent (In Minutes): 33
--- NOTE | 2025-01-14 17:35 | Electrocardiogram Report ---
Test Reason : Blood Pressure : */* mmHG Vent. Rate : 130 BPM Atrial Rate : 130 BPM P-R Int : 118 ms QRS Dur : 74 ms QT Int : 278 ms P-R-T Axes : 70 73 70 degrees QTcB Int : 409 ms Sinus tachycardia Possible Left atrial enlargement Nonspecific ST abnormality Abnormal ECG When compared with ECG of 11-Oct-2023 07:57, Premature ventricular complexes are no longer Present Confirmed by Calvin Garcia ([id number]) on 01/14/2025 5:35:17 PM Referred By: REFERRED SELF Confirmed By: Calvin Garcia
[2025-01-14] MEDS ORDERED: AZITHROMYCIN 250 MG TAB PO SCH (21:00)
[2025-01-14] MEDS ORDERED: BIMATOPROST 0.01% OP SOLN 2.5 ML BTL OP SCH (21:00)
[2025-01-14] MEDS ORDERED: cefTRIAXone SODIUM 2,000 MG/50 ML BAG IV SCH (22:00)
== END 2025-01-14 15:52 | disposition home or self-care (01) | DRG 194 ==
LOC: ED 20:52 → EDINP 23:48 → SUATTDRO 23:48 → EDINP 01-14 00:40

== ENCOUNTER 2025-01-23 08:39 | Inpatient (IN) ==
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
[2025-01-23 09:26] LABS: Base Excess VBG 6.4 mEq/L; HCO3 VBG 34 mmol/L; Oxygen Saturation VBG < 60.0 %; PCO2 VBG 58 mmHg (38-50); PO2 VBG 33 mmHg; pH VBG 7.37 (7.36-7.41)
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
[2025-01-23 09:27] LABS: Hematocrit (blood only) 36.0 % (37.0-47.0); Hemoglobin 11.7 g/dl (12.0-16.0); Immature Granulocytes # (auto) 0.15 K/uL (0.01-0.20); Immature Granulocytes % (auto) 1.4 %; Mean Corpuscular Hemoglobin 31.4 pg (25.0-34.0); Mean Corpuscular Volume 96.5 fL (80.0-100.0); Platelet Count 287 K/uL (130-400); RDW Standard Deviation 52.1 fL (36.4-46.3); Red Blood Count 3.73 M/uL (4.20-5.40); White Blood Count 10.85 K/ul (4.8-10.8)
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
[2025-01-23] MEDS: OPTIRAY 320 100ml IV ONE (09:31)
[2025-01-23 09:45] LABS: Alanine Aminotransferase 18 U/L (7-52); Albumin Globulin Ratio 1.1 (0.9-2); Alkaline Phosphatase 102 U/L (34-104); Anion Gap 6 (3-11); Bilirubin,Total 0.3 mg/dl (0.2-1.0); Blood Urea Nitrogen 20 mg/dl (6-23); Calcium 8.4 mg/dl (8.6-10.3); Carbon Dioxide 28 mmol/L (21-32); Chloride 107 mmol/L (98-107); Creatine Kinase 45 U/L (26-192); Globulin 3.1 gm/dl (2.5-4.0); Glucose 104 mg/dl (70-99(Fasting)); Lipase 18 U/L (11-82); Potassium 3.8 mmol/L (3.5-5.1); Sodium 141 mmol/L (136-145); Total Protein 6.4 gm/dl (6.0-8.3)
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
[2025-01-23 10:14] LABS: INR 0.9 (0.9-1.1); Partial Thromboplastin Time 24 Seconds (21-31); Prothrombin Time 10.0 Seconds (9.0-12.0)
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
[2025-01-23] MEDS: LIDOCAINE/EPINEPH/TETRACAINE 1 EA SYR EXT STA (10:27)
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
[2025-01-23] MEDS: cefTRIAXone SODIUM 2,000 MG/50 ML BAG IV STA (11:11)
[2025-01-23] MEDS: ALBUT/IPRATROP 3MG/0.5MG NEB 3 ML VIAL NEB STA (11:11)
[2025-01-23 11:14] LABS: Base Excess VBG 6.9 mEq/L; HCO3 VBG 34 mmol/L; Oxygen Saturation VBG < 60.0 %; PCO2 VBG 59 mmHg (38-50); PO2 VBG 26 mmHg; pH VBG 7.37 (7.36-7.41)
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
--- NOTE | 2025-01-23 11:51 | Emergency Department Note ---
ED Visit Note I was asked by Dr. Waldron to suture the patient's left second finger. PROCEDURE: Patient was seen and evaluated by myself. Costs and benefits of performing primary wound closure versus no repair were discussed with the patient who verbalizes understanding. Verbal consent was obtained prior to performing the procedure. Let gel was applied to the finger prior to my evaluation. The wound was cleansed and prepped in the typical sterile fashion utilizing normal saline and Betadine. The wound was sterilely draped. Once proper anesthetization was established, the wound was further examined and demonstrated no deep structures. The wound was copiously irrigated with normal saline and Betadine. The wound was closed using 3 simple, 6-0 nylon sutures with the wound edges being well approximated. Patient tolerated the procedure well. No complications were met. The wound was cleansed and dressed with a Bacitracin dressing. A metal splint was applied to the finger for comfort. Patient educated on worrisome symptoms for return visit to the Emergency Department. Patient discharged to home in good condition. Please refer to Dr. Waldron's note for further management aside from the suturing. .
--- NOTE | 2025-01-23 11:56 | Electrocardiogram Report ---
Test Reason : Blood Pressure : */* mmHG Vent. Rate : 97 BPM Atrial Rate : 97 BPM P-R Int : 152 ms QRS Dur : 74 ms QT Int : 334 ms P-R-T Axes : 74 51 63 degrees QTcB Int : 424 ms Normal sinus rhythm Normal ECG When compared with ECG of 13-Jan-2025 21:01, No significant change was found Confirmed by Harry Styles ([id number]) on 01/23/2025 11:56:05 AM Referred By: REFERRED SELF Confirmed By: Harry Styles
[2025-01-23] MEDS: LIDOCAINE 1% LOCAL 20 ML VIAL INFIL ONE (12:22)
[2025-01-23 12:51] LABS: Magnesium 1.8 mg/dl (1.7-2.4)
[2025-01-23 13:31] LABS: Hemoglobin A1C 7.7 % (4.5-5.6)
[2025-01-23 14:19] LABS: Appearance Urine Clear (Clear); Glucose Urine UA Negative (Negative)
[2025-01-23] MEDS ORDERED: ALUMINUM/MAGNESIUM SUSP 30 ML UDC PO PRN (14:40)
[2025-01-23] MEDS ORDERED: ONDANSETRON INJ 2 MG/ML 2 ML VIAL IV PRN (14:40)
[2025-01-23] MEDS ORDERED: LEVALBUTEROL HCL 0.63 MG/3 ML NEB NEB PRN (14:40)
[2025-01-23] MEDS ORDERED: ACETAMINOPHEN 325 MG TAB PO PRN (14:40)
[2025-01-23] MEDS ORDERED: BENZONATATE 100 MG CAPSULE PO PRN (14:40)
[2025-01-23] MEDS ORDERED: POLYETHYLENE (MIRALAX) 17 GM PACK PO PRN (14:40)
[2025-01-23] MEDS ORDERED: MAGNESIUM HYDROXIDE SUSP 30 ML UDC PO PRN (14:40)
[2025-01-23] MEDS: ALBUT/IPRATROP 3MG/0.5MG NEB 3 ML VIAL NEB SCH (15:11)
[2025-01-23] MEDS: cefTRIAXone SODIUM 2,000 MG/50 ML BAG IV SCH (16:09)
[2025-01-23 16:23] LABS: Amphetamines+Metham, Urine Pos (Neg); MDMA (Ecstacy), Urine Pos (Neg); Marijuana, Urine Pos (Neg)
[2025-01-23] MEDS: GADOBUTROL 65ML VIAL IV ONE (19:48)
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
[2025-01-23 21:29] VITALS: TEMP 97.5
[2025-01-24 07:00] VITALS: BP 114/70
[2025-01-24 07:15] VITALS: PULSE 103; RESP 18; O2SAT 94
[2025-01-24 07:15] LABS: Base Excess VBG 5.0 mEq/L; HCO3 VBG 30 mmol/L; Oxygen Saturation VBG 91.9 %; PCO2 VBG 44 mmHg (38-50); PO2 VBG 60 mmHg; pH VBG 7.44 (7.36-7.41)
[2025-01-24 07:26] LABS: Hematocrit (blood only) 35.4 % (37.0-47.0); Hemoglobin 11.9 g/dl (12.0-16.0); Mean Corpuscular Hemoglobin 31.6 pg (25.0-34.0); Mean Corpuscular Volume 93.9 fL (80.0-100.0); Platelet Count 297 K/uL (130-400); RDW Standard Deviation 51.5 fL (36.4-46.3); Red Blood Count 3.77 M/uL (4.20-5.40); White Blood Count 12.06 K/ul (4.8-10.8)
[2025-01-24] MEDS: REMOVE NICODERM PATCH SCH (07:29)
[2025-01-24] MEDS: BIMATOPROST 0.01% OP SOLN 2.5 ML BTL OP SCH (07:35)
[2025-01-24] MEDS: NICOTINE 21 MG/24 HR TDSY TD SCH (07:35)
[2025-01-24 07:54] LABS: Anion Gap 4.0 (3-11); Blood Urea Nitrogen 20.0 mg/dl (6-23); Calcium 8.2 mg/dl (8.6-10.3); Carbon Dioxide 29.0 mmol/L (21-32); Chloride 105.0 mmol/L (98-107); Creatinine Clr Calc Pharmacy 65.0 ml/min; Glucose 108.0 mg/dl (70-99(Fasting)); Magnesium 1.9 mg/dl (1.7-2.4); Potassium 4.2 mmol/L (3.5-5.1); Sodium 138.0 mmol/L (136-145)
[2025-01-24 09:46] LABS: Thyroid Stimulating Hormone 0.436 uIu/ml (0.300-4.500)
[2025-01-24] MEDS: LACTATED RINGER'S 1,000 ML IV SCH (10:48)
[2025-01-24] MEDS: AZITHROMYCIN 250 MG TAB PO SCH (10:48)
[2025-01-24] MEDS: HYDROCORTISONE SOD 50 MG in SYRINGE 0 ML IV SCH (10:48)
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
[2025-01-28 15:38] LABS: Amphetamine Urine, Confirm 909 ng/mL (<250); MDA negative; MDEA negative; MDMA (Ecstasy) Urine, Confirm negative; Marijuana Quant, GCMS Urine 775 ng/mL (<5); Methamphetamine, Ur Confirm 5846 ng/mL (<250)
== END 2025-01-24 13:15 | disposition left against medical advice (07) | DRG 189 ==
LOC: ED 08:39 → SUATTDRO 11:56 → 3N 11:56